=== PATIENT | female | born 1950 | race Caucasian/White ===

== ENCOUNTER 2017-02-28 14:31 | Emergency (ER) | payer BC ==
[2017-02-28] MEDS ORDERED: Acetaminophen/oxyCODONE 325-5 MG Tab PO ONE (14:43)
--- NOTE | 2017-02-28 14:49 | EDM.PDOC ---
ED HPI GENERAL MEDICAL PROBLEM - General Chief Complaint: Upper Extremity Injury/Pain Stated Complaint: LEFT SHOULDER-ARM HEAD Time Seen by Provider: 02/28/17 14:40 Source of Information: Reports: Patient History Limitations: Reports: No Limitations - History of Present Illness INITIAL COMMENTS - FREE TEXT/NARRATIVE: 67 yo female fell at home this afternoon injuring her L arm and did hit her head. The fall was not witnessed. ? LOC. No current FOUNTAIN, nausea, or neck pain. Was briefly confused when first found. Feels somewhat tired now. Is not on warfarin. Onset: Today Onset Date: 02/28/17 Onset Time: 13:00 Duration: Minutes:, Constant Location: Reports: Upper Extremity, Left Quality: Reports: Ache Severity: Moderate Improves with: Reports: Rest Worsens with: Reports: Movement Context: Reports: Trauma Associated Symptoms: Reports: Confusion (Resolved.). 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: Splint(s) (sling) Left Arm Pain Score (Numeric/FACES): 6 - Related Data Allergies Allergy/AdvReac Type Severity Reaction Status Date / Time Penicillins Allergy Rash Verified 02/28/17 15:29 Sulfa (Sulfonamide Allergy Rash Verified 02/28/17 15:29 Antibiotics) Home Meds: Home Meds Exenatide Microspheres [Bydureon Pen] 2 mg SQ WEEKLY 02/28/17 [History] Gabapentin [Neurontin] 600 mg PO BEDTIME 02/28/17 [History] Insulin Degludec [Tresiba Flextouch U-200] 40 units SQ DAILY 02/28/17 [History] Levothyroxine Sodium [Synthroid] 300 mcg PO DAILY 02/28/17 [History] Lisinopril [Lisinopril] 10 mg PO DAILY 02/28/17 [History] Nilotinib HCl [Tasigna] 200 mg PO BID 02/28/17 [History] atorvaSTATin Calcium [Atorvastatin Calcium] 20 mg PO DAILY 02/28/17 [History] sitaGLIPtin Phos/Metformin HCl [Janumet Xr 50-500 mg Tablet] 1 each PO BID 02/28 [History] Review of Systems - Review of Systems Review Of Systems: See Below Constitutional: Reports: No Symptoms Eyes: Reports: No Symptoms Ears: Reports: No Symptoms Nose: Reports: No Symptoms Mouth/Throat: Reports: No Symptoms Respiratory: Reports: No Symptoms GI/Abdominal: Reports: No Symptoms Genitourinary: Reports: No Symptoms Musculoskeletal: Reports: Arm Pain (left) Skin: Reports: No Symptoms Neurological: Reports: Confusion (transient, now resolved.). Denies: Headache Psychiatric: Reports: No Symptoms ED EXAM, GENERAL - Physical Exam Exam: See Below Exam Limited By: No Limitations General Appearance: Alert, WD/WN, No Apparent Distress, Obese Eye Exam: Bilateral Eye: Normal Inspection Ears: Normal External Exam, Normal Canal, Hearing Grossly Normal Ear Exam: Bilateral Ear: Auricle Normal, Canal Normal Nose: Normal Inspection, Normal Mucosa, No Blood Throat/Mouth: Normal Inspection, Normal Lips, Normal Oropharynx, Normal Voice, No Airway Compromise Head: Atraumatic, Normocephalic Neck: Normal Inspection, Supple, Non-Tender Respiratory/Chest: No Respiratory Distress, Lungs Clear, Normal Breath Sounds, No Accessory Muscle Use Cardiovascular: Regular Rate, Rhythm, No Edema GI/Abdominal: Normal Bowel Sounds, Soft, Non-Tender, No Distention Back Exam: Normal Inspection. No: CVA Tenderness (R), CVA Tenderness (L) Extremities: Normal Inspection, No Pedal Edema, Arm Pain (L humerus), Limited Range of Motion. No: Increased Warmth, Mottled, Redness Neurological: Alert, Oriented, CN II-XII Intact, Normal Cognition, Normal Gait Psychiatric: Normal Affect, Normal Mood Skin Exam: Warm, Dry, Intact, Normal Color, No Rash Lymphatic: No Adenopathy Course - Vital Signs Last Recorded V/S: Last Vital Signs Temp 36.5 C 02/28/17 15:23 Pulse 77 02/28/17 15:23 Resp 18 02/28/17 15:23 BP 141/72 H 02/28/17 15:23 Pulse Ox 100 02/28/17 15:23 - Orders/Labs/Meds Orders: Active Orders 24 hr Category Date Time Status Humerus Lt [CR] Stat Exams 02/28/17 14:43 Taken Shoulder Comp Lt [CR] Stat Exams 02/28/17 15:16 Ordered Meds: Medications Discontinued Medications Generic Name Dose Route Start Last Admin Trade Name Freq PRN Reason Stop Dose Admin Oxycodone/Acetaminophen 1 tab 02/28/17 14:43 02/28/17 15:20 Percocet 325-5 Mg PO 02/28/17 14:44 1 tab ONETIME ONE Administration - Radiology Interpretation Free Text/Narrative:: L humerus X-ray-no fx seen. L shoulder [id number] neck fx, non-displaced. Departure - Departure Time of Disposition: 15:45 Disposition: Home, Self-Care 01 Condition: Fair Clinical Impression: Humeral surgical neck fracture Qualifiers: Encounter type: initial encounter Fracture type: closed Fracture morphology: unspecified fracture morphology Fracture alignment: nondisplaced Laterality: left Qualified Code(s): S42.215A - Unspecified nondisplaced fracture of surgical neck of left humerus, initial encounter for closed fracture - Discharge Information Referrals: Anushka Munoz MD [Primary Care Provider] - Forms: ED Department Discharge - My Orders Last 24 Hours: My Active Orders 02/28/17 14:43 Humerus Lt [CR] Stat 02/28/17 15:16 Shoulder Comp Lt [CR] Stat - Assessment/Plan Last 24 Hours: My Active Orders 02/28/17 14:43 Humerus Lt [CR] Stat 02/28/17 15:16 Shoulder Comp Lt [CR] Stat
--- NOTE | 2017-02-28 16:03 | CR ---
INDICATION: Injury. LEFT HUMERUS: Five images of the left humerus were obtained and revealed some calcifications at the humeral head, which may represent dystrophic calcifications from previous injuries. Avulsion chip fracture fragments are felt to be less likely with this appearance. If symptoms are referable to this area, shoulder x-ray specifically recommended for further evaluation. Otherwise, no finding to suggest an acute fracture or dislocation was identified at the humerus. Hypertrophic degenerative changes are suggested at the proximal humerus. Report was given in person to Dr. Ugarte. [facility]ENTER[facility]
--- NOTE | 2017-02-28 16:09 | CR ---
INDICATION: Fall. LEFT SHOULDER: Three images of the left shoulder were obtained and revealed severe osteoarthritis with marked narrowing of the inferior glenohumeral joint space and moderate hypertrophic spurring with sclerosis. There are comminuted chip fracture fragments noted along the lateral aspect of the humerus at the greater tuberosity with the possibility of a line of fracture extending medially from there to the area of the medial joint surface of the humerus. If present, that fracture line would be undisplaced and hairline in nature. It is not definitely visualized through and through, but there is suggestion on the medial aspect of the humerus at the surgical neck, an appearance of fracture. Therefore, it should be assumed that there is a fracture extending throughout the entire humeral head in that area. Position and alignment would be adequate, however. Report was called to Dr. Ugarte immediately after the examination was completed , 02/28/2017. [place]
== END 2017-02-28 15:40 | disposition home or self-care (01) ==
LOC: FB.ED 14:31
DX: S42.212A Unspecified displaced fracture of surgical neck of left humerus, initial encounter for closed fracture (principal); Z88.0 Allergy status to penicillin; Z88.2 Allergy status to sulfonamides; Z97.4 Presence of external hearing-aid; W19.XXXA Unspecified fall, initial encounter
CPT/HCPCS: 73030; 73060; 99284; A9270

== ENCOUNTER 2017-08-27 23:03 | Observation (INO) | payer MEDICARE, BC ==
--- NOTE | 2017-08-27 23:35 | EDM.PDOC ---
ED HPI GENERAL MEDICAL PROBLEM - General Stated Complaint: CHEST PAIN Time Seen by Provider: 08/27/17 23:05 Source of Information: Reports: Patient History Limitations: Reports: No Limitations - History of Present Illness INITIAL COMMENTS - FREE TEXT/NARRATIVE: c/o CP pt with sudden onset of chest tightness, midsternal, radiates to back between shoulder blades and down back some N, no V not had previously no prior CV or pul disease was "quite sweaty--dripping wet" sxs subsided by time EMS arrived, given NTG and O2 by EMS no sxs on arrival at ED no cough, no fever or chills daughter reports that she was quite sob on the phone and even after she arrived dx with pneumonia in office 1w ago, CxR done there not hungry today, ate popcorn for bfast and potato chips for dinner, no lunch drank only coffee and diet Isela Larry today had an episode of SOB 1w ago during the night altho she describes this as anxiety BP is borderline low c/w dehydration back of the neck Pain Score (Numeric/FACES): 7 - Related Data Allergies Allergy/AdvReac Type Severity Reaction Status Date / Time Penicillins Allergy Rash Verified 08/27/17 23:38 Sulfa (Sulfonamide Allergy Rash Verified 08/27/17 23:38 Antibiotics) Home Meds: Home Meds Exenatide Microspheres [Bydureon Pen] 2 mg SQ WEEKLY 02/28/17 [History] Gabapentin [Neurontin] 600 mg PO BEDTIME 02/28/17 [History] Insulin Degludec [Tresiba Flextouch U-200] 40 units SQ DAILY 02/28/17 [History] Levothyroxine Sodium [Synthroid] 300 mcg PO DAILY 02/28/17 [History] Lisinopril 10 mg PO DAILY 02/28/17 [History] Nilotinib HCl [Tasigna] 200 mg PO BID 02/28/17 [History] atorvaSTATin Calcium [Atorvastatin Calcium] 20 mg PO BEDTIME 02/28/17 [History] sitaGLIPtin Phos/Metformin HCl [Janumet Xr 50-500 mg Tablet] 1 each PO BID 02/28 [History] guaiFENesin/Codeine Phosphate [Codeine-Guaifen 10-100 mg/5 ml] 5 ml PO TID PRN 04/11/18 [History] Past Medical History Endocrine/Metabolic History: Reports: Diabetes, Type II, Hypothyroidism Oncologic (Cancer) History: Reports: Other (See Below) Other Oncologic History: CML Social & Family History - Tobacco Use Smoking Status *Q: Current Every Day Smoker Years of Tobacco use: 30 Packs/Tins Daily: 1 - Caffeine Use Caffeine Use: Reports: Coffee - Recreational Drug Use Recreational Drug Use: No ED ROS GENERAL - Review of Systems Review Of Systems: See Below Constitutional: Reports: Diaphoresis HEENT: Reports: No Symptoms Respiratory: Reports: No Symptoms Cardiovascular: Reports: Chest Pain Endocrine: Reports: No Symptoms GI/Abdominal: Reports: Nausea : Reports: No Symptoms Musculoskeletal: Reports: No Symptoms Skin: Reports: No Symptoms Neurological: Reports: No Symptoms Psychiatric: Reports: No Symptoms Hematologic/Lymphatic: Reports: No Symptoms Immunologic: Reports: No Symptoms ED EXAM, GENERAL - Physical Exam Exam: See Below Exam Limited By: No Limitations General Appearance: Alert, WD/WN, No Apparent Distress, Other (alert, pleasant, nonill, cooperative) Eye Exam: Bilateral Eye: Normal Inspection Ears: Hearing Grossly Normal Nose: Normal Inspection, Normal Mucosa, No Blood Throat/Mouth: Normal Inspection, Normal Lips, Normal Teeth, Normal Gums, Normal Oropharynx, Normal Voice, No Airway Compromise Head: Atraumatic, Normocephalic Neck: Normal Inspection, Supple, Non-Tender, Full Range of Motion Respiratory/Chest: No Respiratory Distress, Lungs Clear, Normal Breath Sounds, No Accessory Muscle Use, Chest Non-Tender Cardiovascular: Regular Rate, Rhythm, No Edema, No Gallop, No JVD, No Murmur, No Rub GI/Abdominal: Soft, Non-Tender, No Distention Back Exam: Normal Inspection, Full Range of Motion, NT Extremities: Normal Inspection, Normal Range of Motion, Non-Tender, No Pedal Edema Neurological: Alert, Oriented, CN II-XII Intact, Normal Cognition, No Motor/ Sensory Deficits Psychiatric: Normal Affect, Normal Mood Skin Exam: Warm, Dry, Intact, Normal Color, No Rash Lymphatic: No Adenopathy Course - Vital Signs Last Recorded V/S: Last Vital Signs Temp 36.2 C 08/27/17 23:05 Pulse 91 08/27/17 23:05 Resp 19 08/27/17 23:05 BP 103/50 L 08/27/17 23:05 Pulse Ox 95 08/27/17 23:05 - Orders/Labs/Meds Orders: Active Orders 24 hr Category Date Time Status CTA Abd Pelv w Cont [CT] Stat Exams 08/28/17 01:18 Taken Chest 1V Frontal [CR] Stat Exams 08/27/17 23:23 Ordered Chest Abdomen [CT] Stat Exams 08/28/17 00:10 Taken Sodium Chloride 0.9% [Normal Saline] 1,000 ml Med 08/27/17 23:45 Active IV ASDIRECTED EKG 12 Lead [EK] Routine Ther 08/27/17 23:23 Ordered Medication Orders Sodium Chloride (Normal Saline) 1,000 mls @ 999 mls/hr IV ASDIRECTED [place] Last Admin: 08/27/17 23:54 Dose: 999 mls/hr Labs: Laboratory Tests 08/27/17 08/27/17 08/27/17 Range/Units 23:25 23:25 23:25 WBC 13.8 H (4.5-12.0) X10-3/uL RBC 4.89 (3.23-5.20) x10(6)uL Hgb 14.8 (11.5-15.5) g/dL Hct 42.8 (30.0-51.3) % MCV 87.3 (80-96) fL MCH 30.2 (27.7-33.6) pg MCHC 34.6 (32.2-35.4) g/dL RDW 13.3 (11.5-15.5) % Plt Count 252 (125-369) X10(3)uL MPV 8.4 (7.4-10.4) fL Add Manual Diff Yes Neutrophils % (Manual) 86 H (46-82) % Band Neutrophils % 1 (0-6) % Lymphocytes % (Manual) 8 L (13-37) % Monocytes % (Manual) 3 L (4-12) % Eosinophils % (Manual) 2 (0-5) % PT (8.7-11.1) INR (0.89-1.13) D-Dimer, Quantitative (100-400) ng/mL Sodium 139 (135-145) mmol/L Potassium 4.4 (3.5-5.3) mmol/L Chloride 102 (100-110) mmol/L Carbon Dioxide 27 (21-32) mmol/L BUN 21 H (7-18) mg/dL Creatinine 1.0 (0.55-1.02) mg/dL Est Cr Clr Drug Dosing TNP Estimated GFR (MDRD) 55 L (>60) BUN/Creatinine Ratio 21.0 H (9-20) Glucose 196 H (80-116) mg/dL Calcium 9.6 (8.6-10.2) mg/dL Total Bilirubin 0.4 (0.1-1.3) mg/dL AST 15 (5-25) IU/L ALT 31 (12-36) U/L Alkaline Phosphatase 96 (56-112) IU/L Troponin I < 0.017 L (<0.017-0.056) ng/mL C-Reactive Protein 0.5 (0.5-0.9) mg/dL NT-Pro-B Natriuret Pep (<=125) pg/mL Total Protein 7.5 (6.0-8.0) g/dL Albumin 3.5 (3.2-4.6) g/dL Globulin 4.0 g/dL Albumin/Globulin Ratio 0.9 08/27/17 08/27/17 08/27/17 Range/Units 23:25 23:25 23:25 WBC (4.5-12.0) X10-3/uL RBC (3.23-5.20) x10(6)uL Hgb (11.5-15.5) g/dL Hct (30.0-51.3) % MCV (80-96) fL MCH (27.7-33.6) pg MCHC (32.2-35.4) g/dL RDW (11.5-15.5) % Plt Count (125-369) X10(3)uL MPV (7.4-10.4) fL Add Manual Diff Neutrophils % (Manual) (46-82) % Band Neutrophils % (0-6) % Lymphocytes % (Manual) (13-37) % Monocytes % (Manual) (4-12) % Eosinophils % (Manual) (0-5) % PT 9.9 (8.7-11.1) INR 0.98 (0.89-1.13) D-Dimer, Quantitative 1020 H (100-400) ng/mL Sodium (135-145) mmol/L Potassium (3.5-5.3) mmol/L Chloride (100-110) mmol/L Carbon Dioxide (21-32) mmol/L BUN (7-18) mg/dL Creatinine (0.55-1.02) mg/dL Est Cr Clr Drug Dosing Estimated GFR (MDRD) (>60) BUN/Creatinine Ratio (9-20) Glucose (80-116) mg/dL Calcium (8.6-10.2) mg/dL Total Bilirubin (0.1-1.3) mg/dL AST (5-25) IU/L ALT (12-36) U/L Alkaline Phosphatase (56-112) IU/L Troponin I (<0.017-0.056) ng/mL C-Reactive Protein (0.5-0.9) mg/dL NT-Pro-B Natriuret Pep 180 H (<=125) pg/mL Total Protein (6.0-8.0) g/dL Albumin (3.2-4.6) g/dL Globulin g/dL Albumin/Globulin Ratio Meds: Medications Generic Name Dose Route Start Last Admin Trade Name Freq PRN Reason Stop Dose Admin Sodium Chloride 1,000 mls @ 999 mls/hr 08/27/17 23:45 08/27/17 23:54 Normal Saline IV 999 mls/hr ASDIRECTED [place] Administration Discontinued Medications Generic Name Dose Route Start Last Admin Trade Name Freq PRN Reason Stop Dose Admin Iopamidol 150 ml 08/28/17 00:43 08/28/17 00:50 Isovue-370 (76%) IV 08/28/17 00:44 116 ml ONETIME ONE Administration - Re-Assessments/Exams Free Text/Narrative Re-Assessment/Exam: 08/28/17 02:54 CTA of chest/abd/pelvis is neg for PE or aneurysm, does show 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 and fat attenuation at the atrial septum pt's symptoms c/w ACS, will admit to r/o PA and for further cardiac evaluation, pt reluctantly agrees Departure - Departure Time of Disposition: 02:57 Disposition: Refer to Observation Condition: Good Clinical Impression: Acute coronary syndrome, Chest pain, rule out acute myocardial infarction, Elevated brain natriuretic peptide (BNP) level, Leukocytosis, Elevated d-dimer, Current smoker - Discharge Information Referrals: Anushka Munoz MD [Primary Care Provider] - - My Orders Last 24 Hours: My Active Orders 08/27/17 23:23 Chest 1V Frontal [CR] Stat EKG 12 Lead [EK] Routine 08/27/17 23:45 Sodium Chloride 0.9% [Normal Saline] 1,000 ml IV ASDIRECTED 08/28/17 00:10 Chest Abdomen [CT] Stat 08/28/17 01:18 CTA Abd Pelv w Cont [CT] Stat - Assessment/Plan Last 24 Hours: My Active Orders 08/27/17 23:23 Chest 1V Frontal [CR] Stat EKG 12 Lead [EK] Routine 08/27/17 23:45 Sodium Chloride 0.9% [Normal Saline] 1,000 ml IV ASDIRECTED 08/28/17 00:10 Chest Abdomen [CT] Stat 08/28/17 01:18 CTA Abd Pelv w Cont [CT] Stat
[2017-08-27] MEDS ORDERED: Sodium Chloride 0.9% 1,000 ML IV SCH (23:45)
[2017-08-28] MEDS ORDERED: Iopamidol 755 MG/ML 150 ML Bottle IV ONE (00:43)
[2017-08-28] MEDS ORDERED: Ondansetron 4 MG/2 ML SDV IV PRN (03:09)
[2017-08-28] MEDS ORDERED: Nitroglycerin 0.4 MG Tab.SL SL PRN (03:09)
[2017-08-28] MEDS ORDERED: Acetaminophen 325 MG Tab PO PRN (03:09)
[2017-08-28] MEDS ORDERED: Sodium Chloride 0.9% 1,000 ML IV SCH (03:15)
[2017-08-28] MEDS ORDERED: Enoxaparin 40 MG/0.4 ML Syringe SUBCUT SCH (04:00)
[2017-08-28] MEDS ORDERED: NILOTINIB HCL 400 MG PO SCH (09:00)
[2017-08-28] MEDS ORDERED: SYNTHROID PO SCH (09:00)
[2017-08-28] MEDS ORDERED: TRESIBA SQ SCH (09:00)
[2017-08-28] MEDS ORDERED: Lisinopril 10 MG Tab *PTOM PO SCH (09:00)
[2017-08-28] MEDS ORDERED: Exenatide Microspheres [Bydureon Pen] 2 MG SQ SCH (10:00)
--- NOTE | 2017-08-28 10:52 | PCM.HP ---
H&P History of Present Illness - General Date of Service: 08/28/17 Admit Problem/Dx: Admission Diagnosis/Problem Admission Diagnosis/Problem Acute coronary syndrome - History of Present Illness Initial Comments - Free Text/Narative: 67y f presented to ed due to pain in back and neck with some chest discomfort. no trauma. some nausea and sweating. no sob, cough, fevers or chills. no pain with swallowing. no hx of this in the past. nothing make it better or worse. described as somewhat sharp and constant. has reflux at times, but didnt seem to be the same. medical/surgical/medication and ADL reviewed with her. risk factors for cardiovascular etiology reviewed. studies in the er included ekg that was non specific in normal sinus. cxr without focal findings. concern for potential disceting aortic aneurism as cause prompted d-dimer which was elevated. cta abdomen negative. back of the neck Pain Score (Numeric/FACES): 7 - Related Data Allergies/Adverse Reactions: Allergies Allergy/AdvReac Type Severity Reaction Status Date / Time Penicillins Allergy Rash Verified 08/29/17 18:25 Sulfa (Sulfonamide Allergy Rash Verified 08/29/17 18:25 Antibiotics) Home Medications: Home Meds Exenatide Microspheres [Bydureon Pen] 2 mg SQ WE 02/28/17 [History] Gabapentin [Neurontin] 600 mg PO BEDTIME 02/28/17 [History] Insulin Degludec [Tresiba Flextouch U-200] 40 units SQ DAILY 02/28/17 [History] Levothyroxine Sodium [Synthroid] 300 mcg PO DAILY 02/28/17 [History] Lisinopril 10 mg PO DAILY 02/28/17 [History] Nilotinib HCl [Tasigna] 400 mg PO BID 02/28/17 [History] atorvaSTATin Calcium [Atorvastatin Calcium] 20 mg PO BEDTIME 02/28/17 [History] sitaGLIPtin Phos/Metformin HCl [Janumet Xr 50-500 mg Tablet] 1 each PO BID 02/28 [History] guaiFENesin/Codeine Phosphate [Codeine-Guaifen 10-100 mg/5 ml] 5 ml PO TID PRN 08/28/17 [History] Past Medical History HEENT History: Reports: Impaired Vision Respiratory History: Reports: Pneumonia, Recurrent [employer] History: Reports: Psychiatric History: Reports: Panic Attack Endocrine/Metabolic History: Reports: Diabetes, Type II, Hypothyroidism Oncologic (Cancer) History: Reports: Leukemia, Other (See Below) Other Oncologic History: CML - Past Surgical History GI Surgical History: Reports: Appendectomy, Cholecystectomy Female Surgical History: Reports: Other (See Below) Other Female Surgeries/Procedures: ovarian cyst, cervical cancer Social & Family History - Family History Family Medical History: Unobtainable - Tobacco Use Smoking Status *Q: Current Every Day Smoker Years of Tobacco use: 50 Packs/Tins Daily: 1.5 Used Tobacco, but Quit: No - Caffeine Use Caffeine Use: Reports: Coffee, Soda - Recreational Drug Use Recreational Drug Use: No H&P Review of Systems - Review of Systems: Review Of Systems: ROS reveals no pertinent complaints other than HPI. Exam - Exam Exam: See Below - Vital Signs Vital Signs: Last Vital Signs Temp 98.0 F 08/28/17 03:55 Pulse 78 08/28/17 03:55 Resp 18 08/28/17 03:55 BP 111/61 08/28/17 09:59 Pulse Ox 94 L 08/28/17 03:55 Weight: 109.815 kg - Exam General: Alert, Oriented, Cooperative. No: Mild Distress HEENT: Conjunctiva Clear, Posterior Pharynx Clear. No: Scleral Icterus Neck: Supple, Trachea Midline, +2 Carotid Pulse wo Bruit. No: Lymphadenopathy, JVD, Thyromegaly Lungs: Clear to Auscultation, Normal Respiratory Effort. No: Rhonchi, Rub Cardiovascular: Regular Rate, Regular Rhythm, Normal S1, Normal S2 GI/Abdominal Exam: Normal Bowel Sounds, Soft, Non-Tender, No Abnormal Bruit, No Mass Back Exam: Normal Inspection, Full Range of Motion. No: CVA Tenderness (R), CVA Tenderness (L), Paraspinal Tenderness, Vertebral Tenderness Extremities: Non-Tender, Normal Capillary Refill, Leg Pain Skin: Warm, Dry, Intact. No: Wound Psychiatric: Alert, Normal Affect, Normal Mood - Patient Data Lab Results Last 24 hrs: Laboratory Results - last 24 hr 08/27/17 08/27/17 08/27/17 Range/Units 23:25 23:25 23:25 WBC 13.8 H (4.5-12.0) X10-3/uL RBC 4.89 (3.23-5.20) x10(6)uL Hgb 14.8 (11.5-15.5) g/dL Hct 42.8 (30.0-51.3) % MCV 87.3 (80-96) fL MCH 30.2 (27.7-33.6) pg MCHC 34.6 (32.2-35.4) g/dL RDW 13.3 (11.5-15.5) % Plt Count 252 (125-369) X10(3)uL MPV 8.4 (7.4-10.4) fL Neut % (Auto) (46-82) % Lymph % (Auto) (13-37) % [place] % (Auto) (4-12) % Eos % (Auto) (1.0-5.0) % Baso % (Auto) (0-2) % Neut # (Auto) (1.6-8.3) # Lymph # (Auto) (0.6-5.0) # [place] # (Auto) (0.0-1.3) # Eos # (Auto) (0.0-0.8) # Baso # (Auto) (0.0-0.2) # Add Manual Diff Yes Neutrophils % (Manual) 86 H (46-82) % Band Neutrophils % 1 (0-6) % Lymphocytes % (Manual) 8 L (13-37) % Monocytes % (Manual) 3 L (4-12) % Eosinophils % (Manual) 2 (0-5) % PT (8.7-11.1) INR (0.89-1.13) D-Dimer, Quantitative (100-400) ng/mL Sodium 139 (135-145) mmol/L Potassium 4.4 (3.5-5.3) mmol/L Chloride 102 (100-110) mmol/L Carbon Dioxide 27 (21-32) mmol/L BUN 21 H (7-18) mg/dL Creatinine 1.0 (0.55-1.02) mg/dL Est Cr Clr Drug Dosing TNP Estimated GFR (MDRD) 55 L (>60) BUN/Creatinine Ratio 21.0 H (9-20) Glucose 196 H (80-116) mg/dL Calcium 9.6 (8.6-10.2) mg/dL Total Bilirubin 0.4 (0.1-1.3) mg/dL AST 15 (5-25) IU/L ALT 31 (12-36) U/L Alkaline Phosphatase 96 (56-112) IU/L Troponin I < 0.017 L (<0.017-0.056) ng/mL C-Reactive Protein 0.5 (0.5-0.9) mg/dL NT-Pro-B Natriuret Pep (<=125) pg/mL Total Protein 7.5 (6.0-8.0) g/dL Albumin 3.5 (3.2-4.6) g/dL Globulin 4.0 g/dL Albumin/Globulin Ratio 0.9 08/27/17 08/27/17 08/27/17 Range/Units 23:25 23:25 23:25 WBC (4.5-12.0) X10-3/uL RBC (3.23-5.20) x10(6)uL Hgb (11.5-15.5) g/dL Hct (30.0-51.3) % MCV (80-96) fL MCH (27.7-33.6) pg MCHC (32.2-35.4) g/dL RDW (11.5-15.5) % Plt Count (125-369) X10(3)uL MPV (7.4-10.4) fL Neut % (Auto) (46-82) % Lymph % (Auto) (13-37) % [place] % (Auto) (4-12) % Eos % (Auto) (1.0-5.0) % Baso % (Auto) (0-2) % Neut # (Auto) (1.6-8.3) # Lymph # (Auto) (0.6-5.0) # [place] # (Auto) (0.0-1.3) # Eos # (Auto) (0.0-0.8) # Baso # (Auto) (0.0-0.2) # Add Manual Diff Neutrophils % (Manual) (46-82) % Band Neutrophils % (0-6) % Lymphocytes % (Manual) (13-37) % Monocytes % (Manual) (4-12) % Eosinophils % (Manual) (0-5) % PT 9.9 (8.7-11.1) INR 0.98 (0.89-1.13) D-Dimer, Quantitative 1020 H (100-400) ng/mL Sodium (135-145) mmol/L Potassium (3.5-5.3) mmol/L Chloride (100-110) mmol/L Carbon Dioxide (21-32) mmol/L BUN (7-18) mg/dL Creatinine (0.55-1.02) mg/dL Est Cr Clr Drug Dosing Estimated GFR (MDRD) (>60) BUN/Creatinine Ratio (9-20) Glucose (80-116) mg/dL Calcium (8.6-10.2) mg/dL Total Bilirubin (0.1-1.3) mg/dL AST (5-25) IU/L ALT (12-36) U/L Alkaline Phosphatase (56-112) IU/L Troponin I (<0.017-0.056) ng/mL C-Reactive Protein (0.5-0.9) mg/dL NT-Pro-B Natriuret Pep 180 H (<=125) pg/mL Total Protein (6.0-8.0) g/dL Albumin (3.2-4.6) g/dL Globulin g/dL Albumin/Globulin Ratio 08/28/17 Range/Units 06:25 WBC 10.1 (4.5-12.0) X10-3/uL RBC 4.52 (3.23-5.20) x10(6)uL Hgb 13.4 (11.5-15.5) g/dL Hct 39.0 (30.0-51.3) % MCV 86.4 (80-96) fL MCH 29.7 (27.7-33.6) pg MCHC 34.3 (32.2-35.4) g/dL RDW 13.3 (11.5-15.5) % Plt Count 232 (125-369) X10(3)uL MPV 8.5 (7.4-10.4) fL Neut % (Auto) 70.8 (46-82) % Lymph % (Auto) 20.1 (13-37) % [place] % (Auto) 5.3 (4-12) % Eos % (Auto) 3 (1.0-5.0) % Baso % (Auto) 1 (0-2) % Neut # (Auto) 7.2 (1.6-8.3) # Lymph # (Auto) 2.0 (0.6-5.0) # [place] # (Auto) 0.5 (0.0-1.3) # Eos # (Auto) 0.3 (0.0-0.8) # Baso # (Auto) 0.1 (0.0-0.2) # Add Manual Diff Neutrophils % (Manual) (46-82) % Band Neutrophils % (0-6) % Lymphocytes % (Manual) (13-37) % Monocytes % (Manual) (4-12) % Eosinophils % (Manual) (0-5) % PT (8.7-11.1) INR (0.89-1.13) D-Dimer, Quantitative (100-400) ng/mL Sodium (135-145) mmol/L Potassium (3.5-5.3) mmol/L Chloride (100-110) mmol/L Carbon Dioxide (21-32) mmol/L BUN (7-18) mg/dL Creatinine (0.55-1.02) mg/dL Est Cr Clr Drug Dosing Estimated GFR (MDRD) (>60) BUN/Creatinine Ratio (9-20) Glucose (80-116) mg/dL Calcium (8.6-10.2) mg/dL Total Bilirubin (0.1-1.3) mg/dL AST (5-25) IU/L ALT (12-36) U/L Alkaline Phosphatase (56-112) IU/L Troponin I (<0.017-0.056) ng/mL C-Reactive Protein (0.5-0.9) mg/dL NT-Pro-B Natriuret Pep (<=125) pg/mL Total Protein (6.0-8.0) g/dL Albumin (3.2-4.6) g/dL Globulin g/dL Albumin/Globulin Ratio Result Diagrams: 08/28/17 06:25 08/28/17 06:25 - Problem List (1) Chest pain, rule out acute myocardial infarction SNOMED Code(s): 01758929 ICD Code: R07.9 - CHEST PAIN, UNSPECIFIED Status: Acute (2) Elevated d-dimer SNOMED Code(s): 663334093 ICD Code: R79.89 - OTHER SPECIFIED ABNORMAL FINDINGS OF BLOOD CHEMISTRY Status: Acute (3) Current smoker SNOMED Code(s): 66590266 ICD Code: F17.200 - NICOTINE DEPENDENCE, UNSPECIFIED, UNCOMPLICATED Status : Acute Problem List Initiated/Reviewed/Updated: Yes Orders Last 24hrs: Active Orders 24 hr Category Date Time Status Admission Status [Patient Status] [ADT] Routine ADT 08/28/17 03:00 Active Blood Glucose Check, Bedside [RC] 06,11,17,21 Care 08/28/17 03:09 Active Oxygen Therapy [RC] PRN Care 08/28/17 03:09 Active Telemetry Monitoring [Cardiac Monitoring] [RC] .As Care 08/28/17 05:46 Active Directed Up ad Lashanda [RC] ASDIRECTED Care 08/28/17 03:09 Active VTE/DVT Education [RC] Per Unit Routine Care 08/28/17 03:09 Active Vital Signs [RC] 08,12,16,20,00,04 Care 08/28/17 03:09 Active Consistent Carbohydrate Diet [DIET] Diet 08/28/17 Breakfast Active Heart Healthy Diet [DIET] Diet 08/28/17 Breakfast Active CTA Abd Pelv w Cont [CT] Stat Exams 08/28/17 01:18 Taken Chest 1V Frontal [CR] Stat Exams 08/27/17 23:23 Taken Chest Abdomen [CT] Stat Exams 08/28/17 00:10 Taken BASIC METABOLIC PANEL,BMP [CHEM] DAILY Lab 08/29/17 06:00 Ordered CBC WITH AUTO DIFF [HEME] DAILY Lab 08/29/17 06:00 Ordered TROPONIN I [CHEM] Routine Lab 08/28/17 14:00 Ordered Acetaminophen [Tylenol] Med 08/28/17 03:09 Active 650 mg PO Q4H PRN Enoxaparin [Lovenox] Med 08/28/17 04:00 Active 40 mg SUBCUT Q24H Exenatide Microspheres [Bydureon Pen] Med 08/28/17 10:00 Active 2 mg SQ We Gabapentin [Neurontin] Med 08/28/17 21:00 Active 600 mg PO BEDTIME Insulin Degludec Med 08/28/17 09:00 Active 0 units SQ DAILY Levothyroxine Sodium [Synthroid] Med 08/28/17 09:00 Active 0 mcg PO DAILY Lisinopril [Prinivil] Med 08/28/17 09:00 Active 10 mg PO DAILY Nilotinib HCl [Tasigna] Med 08/28/17 09:00 Active 400 mg PO BID Nitroglycerin [Nitrostat] Med 08/28/17 03:09 Active 0.4 mg SL Q5M PRN Ondansetron [Zofran] Med 08/28/17 03:09 Active 4 mg IV Q4H PRN SitaGLIPtin [Januvia] Med 08/28/17 09:00 Pending 50 mg PO DAILY Sodium Chloride 0.9% [Normal Saline] 1,000 ml Med 08/27/17 23:45 Active IV ASDIRECTED Sodium Chloride 0.9% [Normal Saline] 1,000 ml Med 08/28/17 03:15 Active IV ASDIRECTED atorvaSTATin [Lipitor] Med 08/28/17 21:00 Active 20 mg PO BEDTIME Resuscitation Status Routine Resus Stat 08/28/17 03:09 Ordered EKG 12 Lead [EK] Routine Ther 08/27/17 23:23 Ordered EKG 12 Lead [EK] Routine Ther 08/28/17 06:00 Ordered EKG 12 Lead [EK] Routine Ther 08/28/17 14:00 Ordered Medication Orders Acetaminophen (Tylenol) 650 mg PO Q4H PRN PRN Reason: Pain (Mild 1-3)/fever Atorvastatin Calcium (Lipitor) 20 mg PO BEDTIME [facility] Enoxaparin Sodium (Lovenox) 40 mg SUBCUT Q24H [facility] Last Admin: 08/28/17 04:26 Dose: 40 mg Gabapentin (Neurontin) 600 mg PO BEDTIME [facility] Sodium Chloride (Normal Saline) 1,000 mls @ 999 mls/hr IV ASDIRECTED [facility] Last Admin: 08/27/17 23:54 Dose: 999 mls/hr Sodium Chloride (Normal Saline) 1,000 mls @ 50 mls/hr IV ASDIRECTED [facility] Last Admin: 08/28/17 04:27 Dose: 50 mls/hr Lisinopril (Prinivil) 10 mg PO DAILY [facility] Last Admin: 08/28/17 09:59 Dose: 10 mg Nitroglycerin (Nitrostat) 0.4 mg SL Q5M PRN PRN Reason: Chest Pain Exenatide Microspheres [ Bydureon Pen] 2 Mg 2 mg SQ We [facility] Last Admin: 08/28/17 10:33 Dose: 2 mg Tresiba *Ptom 0 units SQ DAILY [facility] Last Admin: 08/28/17 10:04 Dose: 40 units Synthroid 300mcg * (Ptom) 0 mcg PO DAILY [facility] Last Admin: 08/28/17 10:00 Dose: 300 mcg Nilotinib Hcl [ Tasigna] 400 Mg * Ptom 400 mg PO BID [facility] Last Admin: 08/28/17 10:34 Dose: 400 mg Ondansetron HCl (Zofran) 4 mg IV Q4H PRN PRN Reason: Nausea/Vomiting Sitagliptin Phosphate (Januvia) 50 mg PO DAILY [facility] Assessment/Plan Comment:: admitted for observation on tele. run serial ekgs and trops. not having in pain in ed but recieved nitro upon ems presentaion. if pain recurs will give nitro morphine and heparin drip. she has received lovenox dvt proph and gi proph. fluids given in er. will let her eat if 2nd set of enzymes negative. discussed improtance of tobacco cessation. she declines any further written material. will discuss with her dr. archer. she is full code status. anticipate dc in 24- 48h pending above with further outpt cardiac workup.
--- NOTE | 2017-08-28 10:56 | PCM.DCSUM1 ---
Discharge Summary - Hospital Course Brief History: 67 y female admitted under observation to rule out Acute [place] after episode of chest, back pain with sudden sweating and lightheadednes. symptoms resolved after 2 doses of nitro sublingual and did not recur. - Discharge Data Discharge Date: 08/28/17 Discharge Disposition: Home, Self-Care 01 Condition: Good - Discharge Diagnosis/Problem(s) (1) Non-cardiac chest pain SNOMED Code(s): 453922189 ICD Code: R07.89 - OTHER CHEST PAIN Status: Acute (2) Current smoker SNOMED Code(s): 94011137 ICD Code: F17.200 - NICOTINE DEPENDENCE, UNSPECIFIED, UNCOMPLICATED Status : Acute (3) Elevated d-dimer SNOMED Code(s): 589722782 ICD Code: R79.89 - OTHER SPECIFIED ABNORMAL FINDINGS OF BLOOD CHEMISTRY Status: Acute - Patient Summary/Data Recommended Follow-up Testing/Procedures: cardiac stress test with echo Hospital Course: admitted overnight on tele without event. no pain or symptoms as before. was a bit dehydrated so received a fluid bolus. serial enzymes and ekgs negative. ct chest abd pelvis negative for aneurysm. pt felt back to baseline following morning and wished to be discharged to home. agrees to follow up with her pcp for recommended outpat cardiac eval. continue home medications. encouraged to stop smoking. nitro use discussed and s/s of ACS discussed and when to take and or call EMS. on baby asa and nathan. has an annual exam with pcp in next two wks. will review at that time. all questions answered and she is comfortable with disposition and follow up recommendations. - Patient Instructions Diet: Heart Healthy Diet Activity: As Tolerated Driving: May Drive Today Showering/Bathing: May Shower - Discharge Plan Home Medications: Home Meds Exenatide Microspheres [Bydureon Pen] 2 mg SQ WE 02/28/17 [History] Gabapentin [Neurontin] 600 mg PO BEDTIME 02/28/17 [History] Insulin Degludec [Tresiba Flextouch U-200] 40 units SQ DAILY 02/28/17 [History] Levothyroxine Sodium [Synthroid] 300 mcg PO DAILY 02/28/17 [History] Lisinopril 10 mg PO DAILY 02/28/17 [History] Nilotinib HCl [Tasigna] 400 mg PO BID 10/12/17 [History] atorvaSTATin Calcium [Atorvastatin Calcium] 20 mg PO BEDTIME 02/28/17 [History] sitaGLIPtin Phos/Metformin HCl [Janumet Xr 50-500 mg Tablet] 1 each PO BID 02/28 [History] guaiFENesin/Codeine Phosphate [Codeine-Guaifen 10-100 mg/5 ml] 5 ml PO TID PRN 08/28/17 [History] Patient Handouts: Acute Coronary Syndrome - Discharge Summary/Plan Comment DC Time >30 min.: Yes - General Info Date of Service: 08/28/17 Functional Status: Reports: Pain Controlled, Tolerating Diet, Ambulating, Urinating. Denies: New Symptoms - Review of Systems General: Reports: No Symptoms HEENT: Reports: No Symptoms Pulmonary: Reports: No Symptoms Cardiovascular: Reports: No Symptoms Gastrointestinal: Reports: No Symptoms Genitourinary: Reports: No Symptoms Musculoskeletal: Reports: No Symptoms Skin: Reports: No Symptoms Neurological: Reports: No Symptoms Psychiatric: Reports: No Symptoms - Patient Data Vitals - Most Recent: Last Vital Signs Temp 98.0 F 08/28/17 03:55 Pulse 78 08/28/17 03:55 Resp 18 08/28/17 03:55 BP 111/61 08/28/17 09:59 Pulse Ox 94 L 08/28/17 03:55 Weight - Most Recent: 109.815 kg Lab Results - Last 24 hrs: Laboratory Results - last 24 hr 08/27/17 08/27/17 08/27/17 Range/Units 23:25 23:25 23:25 WBC 13.8 H (4.5-12.0) X10-3/uL RBC 4.89 (3.23-5.20) x10(6)uL Hgb 14.8 (11.5-15.5) g/dL Hct 42.8 (30.0-51.3) % MCV 87.3 (80-96) fL MCH 30.2 (27.7-33.6) pg MCHC 34.6 (32.2-35.4) g/dL RDW 13.3 (11.5-15.5) % Plt Count 252 (125-369) X10(3)uL MPV 8.4 (7.4-10.4) fL Neut % (Auto) (46-82) % Lymph % (Auto) (13-37) % [place] % (Auto) (4-12) % Eos % (Auto) (1.0-5.0) % Baso % (Auto) (0-2) % Neut # (Auto) (1.6-8.3) # Lymph # (Auto) (0.6-5.0) # [place] # (Auto) (0.0-1.3) # Eos # (Auto) (0.0-0.8) # Baso # (Auto) (0.0-0.2) # Add Manual Diff Yes Neutrophils % (Manual) 86 H (46-82) % Band Neutrophils % 1 (0-6) % Lymphocytes % (Manual) 8 L (13-37) % Monocytes % (Manual) 3 L (4-12) % Eosinophils % (Manual) 2 (0-5) % PT (8.7-11.1) INR (0.89-1.13) D-Dimer, Quantitative (100-400) ng/mL Sodium 139 (135-145) mmol/L Potassium 4.4 (3.5-5.3) mmol/L Chloride 102 (100-110) mmol/L Carbon Dioxide 27 (21-32) mmol/L BUN 21 H (7-18) mg/dL Creatinine 1.0 (0.55-1.02) mg/dL Est Cr Clr Drug Dosing TNP Estimated GFR (MDRD) 55 L (>60) BUN/Creatinine Ratio 21.0 H (9-20) Glucose 196 H (80-116) mg/dL Calcium 9.6 (8.6-10.2) mg/dL Total Bilirubin 0.4 (0.1-1.3) mg/dL AST 15 (5-25) IU/L ALT 31 (12-36) U/L Alkaline Phosphatase 96 (56-112) IU/L Troponin I < 0.017 L (<0.017-0.056) ng/mL C-Reactive Protein 0.5 (0.5-0.9) mg/dL NT-Pro-B Natriuret Pep (<=125) pg/mL Total Protein 7.5 (6.0-8.0) g/dL Albumin 3.5 (3.2-4.6) g/dL Globulin 4.0 g/dL Albumin/Globulin Ratio 0.9 04/10/18 04/10/18 04/10/18 Range/Units 23:25 23:25 23:25 WBC (4.5-12.0) X10-3/uL RBC (3.23-5.20) x10(6)uL Hgb (11.5-15.5) g/dL Hct (30.0-51.3) % MCV (80-96) fL MCH (27.7-33.6) pg MCHC (32.2-35.4) g/dL RDW (11.5-15.5) % Plt Count (125-369) X10(3)uL MPV (7.4-10.4) fL Neut % (Auto) (46-82) % Lymph % (Auto) (13-37) % [place] % (Auto) (4-12) % Eos % (Auto) (1.0-5.0) % Baso % (Auto) (0-2) % Neut # (Auto) (1.6-8.3) # Lymph # (Auto) (0.6-5.0) # [place] # (Auto) (0.0-1.3) # Eos # (Auto) (0.0-0.8) # Baso # (Auto) (0.0-0.2) # Add Manual Diff Neutrophils % (Manual) (46-82) % Band Neutrophils % (0-6) % Lymphocytes % (Manual) (13-37) % Monocytes % (Manual) (4-12) % Eosinophils % (Manual) (0-5) % PT 9.9 (8.7-11.1) INR 0.98 (0.89-1.13) D-Dimer, Quantitative 1020 H (100-400) ng/mL Sodium (135-145) mmol/L Potassium (3.5-5.3) mmol/L Chloride (100-110) mmol/L Carbon Dioxide (21-32) mmol/L BUN (7-18) mg/dL Creatinine (0.55-1.02) mg/dL Est Cr Clr Drug Dosing Estimated GFR (MDRD) (>60) BUN/Creatinine Ratio (9-20) Glucose (80-116) mg/dL Calcium (8.6-10.2) mg/dL Total Bilirubin (0.1-1.3) mg/dL AST (5-25) IU/L ALT (12-36) U/L Alkaline Phosphatase (56-112) IU/L Troponin I (<0.017-0.056) ng/mL C-Reactive Protein (0.5-0.9) mg/dL NT-Pro-B Natriuret Pep 180 H (<=125) pg/mL Total Protein (6.0-8.0) g/dL Albumin (3.2-4.6) g/dL Globulin g/dL Albumin/Globulin Ratio 08/28/17 08/28/17 08/28/17 Range/Units 06:25 06:25 06:25 WBC 10.1 (4.5-12.0) X10-3/uL RBC 4.52 (3.23-5.20) x10(6)uL Hgb 13.4 (11.5-15.5) g/dL Hct 39.0 (30.0-51.3) % MCV 86.4 (80-96) fL MCH 29.7 (27.7-33.6) pg MCHC 34.3 (32.2-35.4) g/dL RDW 13.3 (11.5-15.5) % Plt Count 232 (125-369) X10(3)uL MPV 8.5 (7.4-10.4) fL Neut % (Auto) 70.8 (46-82) % Lymph % (Auto) 20.1 (13-37) % [place] % (Auto) 5.3 (4-12) % Eos % (Auto) 3 (1.0-5.0) % Baso % (Auto) 1 (0-2) % Neut # (Auto) 7.2 (1.6-8.3) # Lymph # (Auto) 2.0 (0.6-5.0) # [place] # (Auto) 0.5 (0.0-1.3) # Eos # (Auto) 0.3 (0.0-0.8) # Baso # (Auto) 0.1 (0.0-0.2) # Add Manual Diff Neutrophils % (Manual) (46-82) % Band Neutrophils % (0-6) % Lymphocytes % (Manual) (13-37) % Monocytes % (Manual) (4-12) % Eosinophils % (Manual) (0-5) % PT (8.7-11.1) INR (0.89-1.13) D-Dimer, Quantitative (100-400) ng/mL Sodium 141 (135-145) mmol/L Potassium 4.1 (3.5-5.3) mmol/L Chloride 106 (100-110) mmol/L Carbon Dioxide 27 (21-32) mmol/L BUN 16 (7-18) mg/dL Creatinine 0.8 (0.55-1.02) mg/dL Est Cr Clr Drug Dosing 64.54 Estimated GFR (MDRD) > 60 (>60) BUN/Creatinine Ratio 20.0 (9-20) Glucose 128 H (80-116) mg/dL Calcium 9.1 (8.6-10.2) mg/dL Total Bilirubin (0.1-1.3) mg/dL AST (5-25) IU/L ALT (12-36) U/L Alkaline Phosphatase (56-112) IU/L Troponin I < 0.017 L (<0.017-0.056) ng/mL C-Reactive Protein (0.5-0.9) mg/dL NT-Pro-B Natriuret Pep (<=125) pg/mL Total Protein (6.0-8.0) g/dL Albumin (3.2-4.6) g/dL Globulin g/dL Albumin/Globulin Ratio Med Orders - Current: Current Medications Acetaminophen (Tylenol) 650 mg PO Q4H PRN PRN Reason: Pain (Mild 1-3)/fever Atorvastatin Calcium (Lipitor) 20 mg PO BEDTIME [facility] Enoxaparin Sodium (Lovenox) 40 mg SUBCUT Q24H [facility] Last Admin: 08/28/17 04:26 Dose: 40 mg Gabapentin (Neurontin) 600 mg PO BEDTIME [place] Sodium Chloride (Normal Saline) 1,000 mls @ 999 mls/hr IV ASDIRECTED [facility] Last Admin: 08/27/17 23:54 Dose: 999 mls/hr Sodium Chloride (Normal Saline) 1,000 mls @ 50 mls/hr IV ASDIRECTED [facility] Last Admin: 08/28/17 04:27 Dose: 50 mls/hr Lisinopril (Prinivil) 10 mg PO DAILY [facility] Last Admin: 08/28/17 09:59 Dose: 10 mg Nitroglycerin (Nitrostat) 0.4 mg SL Q5M PRN PRN Reason: Chest Pain Exenatide Microspheres [ Bydureon Pen] 2 Mg 2 mg SQ We [facility] Last Admin: 08/28/17 10:33 Dose: 2 mg Tresiba *Ptom 0 units SQ DAILY [facility] Last Admin: 08/28/17 10:04 Dose: 40 units Synthroid 300mcg * (Ptom) 0 mcg PO DAILY [facility] Last Admin: 08/28/17 10:00 Dose: 300 mcg Nilotinib Hcl [ Tasigna] 400 Mg * Ptom 400 mg PO BID [facility] Last Admin: 08/28/17 10:34 Dose: 400 mg Ondansetron HCl (Zofran) 4 mg IV Q4H PRN PRN Reason: Nausea/Vomiting Sitagliptin Phosphate (Januvia) 50 mg PO DAILY [facility] Discontinued Medications Iopamidol (Isovue-370 (76%)) 150 ml IV ONETIME ONE Stop: 08/28/17 00:44 Last Admin: 08/28/17 00:50 Dose: 116 ml - Exam Physical Findings Comments:: General: Alert, Oriented, Cooperative. No: Mild Distress HEENT: Conjunctiva Clear No: Scleral Icterus Neck: Supple, Trachea Midline, +2 Carotid Pulse wo Bruit. No: Lymphadenopathy, JVD Lungs: Clear to Auscultation, Normal Respiratory Effort. No: Rhonchi, Rub Cardiovascular: Regular Rate, Regular Rhythm, Normal S1, Normal S2 GI/Abdominal Exam: Normal Bowel Sounds, Soft, Non-Tender, No Abnormal Bruit, No Mass Back Exam: Normal Inspection, Full Range of Motion. No: CVA Tenderness (R), CVA Tenderness (L), Paraspinal Tenderness, Vertebral Tenderness Extremities: Non-Tender, Normal Capillary Refill, Leg Pain Skin: Warm, Dry, Intact. No: Wound Psychiatric: Alert, Normal Affect, Normal Mood
--- NOTE | 2017-08-28 12:18 | CR ---
INDICATION: Chest pain. CHEST: An AP upright view of the chest was obtained 08/28/2017 and compared with 08/12/2008 and 08/11/2008, revealing the heart to be within normal limits in size, allowing for AP positioning. Minimal calcification is suggested in the arch of the aorta. Overlying EKG leads and overlying snap noted. Some hyperaeration with slight flattening of diaphragm leaves raises question of COPD - correlate clinically. A definite active infiltrate or effusion was not seen. IMPRESSION: No acute process. MTDD
[2017-08-28] MEDS ORDERED: Gabapentin 600 MG Tab *PTOM PO SCH (21:00)
[2017-08-28] MEDS ORDERED: atorvaSTATin 20 MG Tab *PTOM PO SCH (21:00)
== END 2017-08-28 11:44 | disposition home or self-care (01) ==
LOC: FB.ED 23:03 → FB.MS 08-28 03:00
PROVIDERS: ADMIT Emergency Medicine; ATTEND Family Medicine
DX: R07.89 Other chest pain (principal); R79.89 Other specified abnormal findings of blood chemistry; E11.9 Type 2 diabetes mellitus without complications; E03.9 Hypothyroidism, unspecified; J18.9 Pneumonia, unspecified organism; F17.200 Nicotine dependence, unspecified, uncomplicated; Z79.4 Long term (current) use of insulin; Z79.899 Other long term (current) drug therapy; Z88.0 Allergy status to penicillin; Z88.2 Allergy status to sulfonamides; F17.210 Nicotine dependence, cigarettes, uncomplicated
CPT/HCPCS: 36415; 71045; 71275; 74174; 80048; 80053; 83880; 84484; 85025; 85379; 85610; 86140; 93005; 93010; 96360; 96361; 96372; 99285; A9270; G0378; J1650; J7040; Q9967

== ENCOUNTER 2017-08-29 17:33 | Emergency (ER) | payer MEDICARE, BC ==
--- NOTE | 2017-08-29 23:38 | ER ---
DATE SEEN: 08/29/2017 REASON FOR VISIT: Numbness of the right leg. HISTORY OF PRESENT ILLNESS: A 67-year-old female with numbness of the right leg for about 12 hours, sudden onset, also feeling cold, but no pain. REVIEW OF SYSTEMS: No swelling. No trauma. PAST MEDICAL HISTORY: Recently admitted for chest pain. She also has history of tobacco abuse and type 2 diabetes. PHYSICAL EXAMINATION: GENERAL: Not in any distress. VITAL SIGNS: Blood pressure and temperature within normal limits. EXTREMITIES: Right lower extremity, mild discoloration. No tenderness to palpation. Capillary refill is mildly delayed. I was able also to hear the dorsalis pedis pulse by ultrasound. LABORATORY: None. Ultrasound of the veins was negative for DVT. IMPRESSION: Peripheral vascular disease. PLAN: I discussed urgent need for evaluation with an YOON and referral to Vascular Surgery that she has an appointment tomorrow. I discussed that she could start aspirin 81 mg a day and quit smoking. I discharged her in satisfactory condition and painless. No paralysis was noted as well. Time seen was 1915 hours. /[id number] EMILIANO/POLIL
--- NOTE | 2017-08-30 10:44 | US ---
INDICATION: Cold left foot. DUPLEX ULTRASOUND, LEFT LOWER EXTREMITY VEINS: Utilizing 2-D real time, duplex Doppler spectral analysis, and color flow imaging, examination of the left lower extremity veins revealed no evidence of deep venous thrombosis or obstruction. Compression views showed no abnormal lack of compression to suggest thrombosis. No evidence of incompetence of the valves was identified. Greater saphenous vein has been excised. IMPRESSION: Duplex ultrasound, left lower extremity veins, shows no evidence of deep venous thrombosis or incompetence. [facility]
== END 2017-08-29 20:39 | disposition home or self-care (01) ==
LOC: FB.ED 17:33
DX: I73.9 Peripheral vascular disease, unspecified (principal); E11.9 Type 2 diabetes mellitus without complications
CPT/HCPCS: 93971-LT; 99285

== ENCOUNTER 2018-10-25 22:18 | Emergency (ER) | payer MEDICARE, BC ==
--- NOTE | 2018-10-25 22:55 | EDM.PDOC ---
ED HPI GENERAL MEDICAL PROBLEM - General Chief Complaint: General Stated Complaint: SOB, FATIGUE Time Seen by Provider: 10/25/18 22:30 Source of Information: Reports: Patient, Old Records History Limitations: Reports: No Limitations - History of Present Illness INITIAL COMMENTS - FREE TEXT/NARRATIVE: Patient is a very pleasant 68-year-old female who presents with concern for feeling panicky on a regular basis when she is at home. She states when this episode occur, nothing seems to help. It can last anywhere from 2 minutes to about an hour, she sometimes feels a bit short of breath with it. She states it happened about 5 or 6 times today. These episodes have been recurrent over the past week. No appetite, also reports she hasn't taken her medication for approximately 2 days. Her son who accompanies with her said 2 weeks ago she had a similar presentation, ultimately ended up sick for about 4 days and then was admitted to the hospital with very complete workup done. All of her testing was normal except for a question about some fluid around her heart. Ultimately a cardiac MRI was done in [place]. I do not the results for this, however the rest of the [place] paperwork was able to be reviewed. She had a negative nuclear stress test and no blood clots were seen at that time, however she did have a recent hospitalization just prior to that with a right leg arterial clot that required surgery. She has had ongoing pain in her right leg following a surgery to remove the clot. She denies any ongoing chest pain, chest pressure, feeling short of breath with exertion except for during her episode, pleuritic chest pain, cough , no edema in her legs, no significant change in weight at home. Her sugars have been a little bit high, but not abnormal for her. She denies any fever, chills or sweats. She denies any urinary symptoms such as increased urination, frequency or urgency. Denies any nausea, vomiting or diarrhea, she denies any sweating, fevers or chills. Mainly she states that food just doesn't taste very good. She has not traveled anywhere recently. Her son notes that she has had significant psychosocial stressors with a recent decision to sell some land which is opposed by the family, and also an ongoing dispute with [facility] or [facility]. She does drink a significant amount of caffeine and always has, states this does not disrupt her sleep. She has a remote history of panic attacks, however states that she has not had any for his best they can tell, her symptoms of feeling panicked seemed to start around the time her insulin was changed. She is quite frustrated that she has had more than one medical workup for this and has not found any solution. - Related Data Allergies Allergy/AdvReac Type Severity Reaction Status Date / Time Penicillins Allergy Rash Verified 10/25/18 22:55 Sulfa (Sulfonamide Allergy Rash Verified 10/25/18 22:55 Antibiotics) Home Meds: Home Meds Insulin Degludec [Tresiba Flextouch U-200] 40 units SQ DAILY 02/28/17 [History] Lisinopril 10 mg PO DAILY 02/28/17 [History] Nilotinib HCl [Tasigna] 400 mg PO BID 02/28/17 [History] atorvaSTATin Calcium [Atorvastatin Calcium] 20 mg PO BEDTIME 02/28/17 [History] sitaGLIPtin Phos/Metformin HCl [Janumet Xr 50-500 mg Tablet] 1 each PO BID 02/28 [History] .Ozempic 1 mg SQ Q7D 10/27/18 [History] Insulin Aspart [NovoLOG] 0 unit SQ ASDIRECTED 10/27/18 [History] Levothyroxine 200 mcg PO DAILY 10/27/18 [History] Past Medical History HEENT History: Reports: Impaired Vision Other HEENT History: wears glasses Cardiovascular History: Reports: Blood Clots/VTE/DVT, Hypertension, Other (See Below) Other Cardiovascular History: Hx DVT right leg, has stent and ballon placed, takes anticoagulants. Respiratory History: Reports: COPD, Pneumonia, Recurrent HOME SUPPORT WORKER History: Reports: Psychiatric History: Reports: Panic Attack Endocrine/Metabolic History: Reports: Diabetes, Type II, Hypothyroidism Hematologic History: Reports: Anticoagulation Therapy, Other (See Below) Other Hematologic History: Takes anticoagulants for hx DVT. Oncologic (Cancer) History: Reports: Leukemia, Other (See Below) Other Oncologic History: CML. - Infectious Disease History Infectious Disease History: Reports: Chicken Pox - Past Surgical History GI Surgical History: Reports: Appendectomy, Cholecystectomy Female Surgical History: Reports: Other (See Below) Other Female Surgeries/Procedures: Ovarian cyst. Cervical cancer. Social & Family History - Family History Family Medical History: Noncontributory - Tobacco Use Smoking Status *Q: Former Smoker Years of Tobacco use: 50 Used Tobacco, but Quit: No - Caffeine Use Caffeine Use: Reports: Coffee, Soda - Alcohol Use Alcohol Use History: Yes Alcohol Use Comment: rare social drink, wine - Recreational Drug Use Recreational Drug Use: No Other Recreational Drug Type: Patient denies recreational drug use. 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 recently decided to sell land but is getting resistance from family. has had ongoing IRS issue for 2 years from previous sale. ED ROS GENERAL - Review of Systems Review Of Systems: ROS reveals no pertinent complaints other than HPI. ED EXAM, GENERAL - Physical Exam Exam: See Below Free Text/Narrative:: Gen.: Alert, somewhat anxious affect but otherwise no acute distress. Very pleasant. Pupils are equal and reactive, extraocular motion intact. Facial muscles are symmetric and she has equal sensation on both sides of her face. Throat is without erythema, mucous murmurs moist and there is no tonsillar enlargement or exudates, uvula midline, tongue midline. Range of motion is full. Muscle strength +5 out of 5 in both upper and lower extremities and equal side to side, no pronator drift. Gait is normal. Lungs are clear throughout with no wheezes or crackles and heart is regular rate and rhythm, I do not hear murmur. Abdomen positive bowel sounds, soft nondistended and nontender. +2 pulses in both the upper and lower extremities equal bilaterally, no lower extremity edema, no calf swelling and calves. Equal side to side. No obvious skin lesions or rashes. No joint swelling Course - Vital Signs Text/Narrative:: Initial impression- patient with history of cardiovascular problems, also history of arterial clot for which she recently had surgery. Under significant stress at home which is likely contributing, as well as multiple medical issues. We'll get labs, EKG does not show any new findings. Last Recorded V/S: Last Vital Signs Temp 36.4 C 10/26/18 01:15 Pulse 58 L 10/26/18 01:15 Resp 16 10/26/18 01:15 BP 144/70 H 10/26/18 01:15 Pulse Ox 98 10/26/18 01:15 - Orders/Labs/Meds Labs: Laboratory Tests 06/08/19 06/08/19 06/08/19 Range/Units 00:55 23:08 23:08 WBC 9.0 (4.5-12.0) X10-3/uL RBC 4.49 (3.23-5.20) x10(6)uL Hgb 12.9 (11.5-15.5) g/dL Hct 38.2 (30.0-51.3) % MCV 85.2 (80-96) fL MCH 28.8 (27.7-33.6) pg MCHC 33.8 (32.2-35.4) g/dL RDW 14.4 (11.5-15.5) % Plt Count 222 (125-369) X10(3)uL MPV 8.6 (7.4-10.4) fL Neut % (Auto) 76.1 (46-82) % Lymph % (Auto) 15.5 (13-37) % Lea % (Auto) 5.4 (4-12) % Eos % (Auto) 3 (1.0-5.0) % Baso % (Auto) 1 (0-2) % Neut # (Auto) 6.9 (1.6-8.3) # Lymph # (Auto) 1.4 (0.6-5.0) # Lea # (Auto) 0.5 (0.0-1.3) # Eos # (Auto) 0.2 (0.0-0.8) # Baso # (Auto) 0.0 (0.0-0.2) # Sodium 142 (135-145) mmol/L Potassium 3.9 (3.5-5.3) mmol/L Chloride 105 (100-110) mmol/L Carbon Dioxide 27 (21-32) mmol/L BUN 20 H (7-18) mg/dL Creatinine 0.9 (0.55-1.02) mg/dL Est Cr Clr Drug Dosing 56.56 mL/min Estimated GFR (MDRD) > 60 (>60) BUN/Creatinine Ratio 22.2 H (9-20) Glucose 178 H (80-116) mg/dL Lactic Acid (0.4-2.2) mmol/L Calcium 9.6 (8.6-10.2) mg/dL Magnesium (1.8-2.5) mg/dL Total Bilirubin 0.7 (0.1-1.3) mg/dL AST 20 D (5-25) IU/L ALT 42 H D (12-36) U/L Alkaline Phosphatase 126 H (56-112) IU/L Troponin I (<0.017-0.056) ng/mL C-Reactive Protein (0.5-0.9) mg/dL NT-Pro-B Natriuret Pep (<=125) pg/mL Total Protein 7.4 (6.0-8.0) g/dL Albumin 3.7 (3.2-4.6) g/dL Globulin 3.7 g/dL Albumin/Globulin Ratio 1.0 Urine Color Yellow (YELLOW) Urine Appearance Slightly cloudy (CLEAR) Urine pH 5.0 (5.0-6.5) Ur Specific [place] 1.030 H (1.010-1.025) Urine Protein Negative (NEGATIVE) mg/dL Urine Glucose (UA) Normal (NORMAL) mg/dL Urine Ketones Negative (NEGATIVE) mg/dL Urine Occult Blood Moderate H (NEGATIVE) Urine Nitrite Negative (NEGATIVE) Urine Bilirubin Negative (NEGATIVE) Urine Urobilinogen Normal (NEGATIVE) mg/dL Ur Leukocyte Esterase Large H (NEGATIVE) Urine RBC 0-5 (0-5) Urine WBC 10-20 H (0-5) Ur Squamous Epith Cells Few H (NS,R,O) Calcium Oxalate Crystal Few H (NS) Urine Bacteria Few H (NS) 10/25/18 10/25/18 10/25/18 Range/Units 23:08 23:08 23:08 WBC (4.5-12.0) X10-3/uL RBC (3.23-5.20) x10(6)uL Hgb (11.5-15.5) g/dL Hct (30.0-51.3) % MCV (80-96) fL MCH (27.7-33.6) pg MCHC (32.2-35.4) g/dL RDW (11.5-15.5) % Plt Count (125-369) X10(3)uL MPV (7.4-10.4) fL Neut % (Auto) (46-82) % Lymph % (Auto) (13-37) % Lea % (Auto) (4-12) % Eos % (Auto) (1.0-5.0) % Baso % (Auto) (0-2) % Neut # (Auto) (1.6-8.3) # Lymph # (Auto) (0.6-5.0) # Lea # (Auto) (0.0-1.3) # Eos # (Auto) (0.0-0.8) # Baso # (Auto) (0.0-0.2) # Sodium (135-145) mmol/L Potassium (3.5-5.3) mmol/L Chloride (100-110) mmol/L Carbon Dioxide (21-32) mmol/L BUN (7-18) mg/dL Creatinine (0.55-1.02) mg/dL Est Cr Clr Drug Dosing mL/min Estimated GFR (MDRD) (>60) BUN/Creatinine Ratio (9-20) Glucose (80-116) mg/dL Lactic Acid 0.8 (0.4-2.2) mmol/L Calcium (8.6-10.2) mg/dL Magnesium (1.8-2.5) mg/dL Total Bilirubin (0.1-1.3) mg/dL AST (5-25) IU/L ALT (12-36) U/L Alkaline Phosphatase (56-112) IU/L Troponin I < 0.017 L (<0.017-0.056) ng/mL C-Reactive Protein < 0.2 L (0.5-0.9) mg/dL NT-Pro-B Natriuret Pep (<=125) pg/mL Total Protein (6.0-8.0) g/dL Albumin (3.2-4.6) g/dL Globulin g/dL Albumin/Globulin Ratio Urine Color (YELLOW) Urine Appearance (CLEAR) Urine pH (5.0-6.5) Ur Specific [place] (1.010-1.025) Urine Protein (NEGATIVE) mg/dL Urine Glucose (UA) (NORMAL) mg/dL Urine Ketones (NEGATIVE) mg/dL Urine Occult Blood (NEGATIVE) Urine Nitrite (NEGATIVE) Urine Bilirubin (NEGATIVE) Urine Urobilinogen (NEGATIVE) mg/dL Ur Leukocyte Esterase (NEGATIVE) Urine RBC (0-5) Urine WBC (0-5) Ur Squamous Epith Cells (NS,R,O) Calcium Oxalate Crystal (NS) Urine Bacteria (NS) 10/25/18 10/25/18 Range/Units 23:08 23:08 WBC (4.5-12.0) X10-3/uL RBC (3.23-5.20) x10(6)uL Hgb (11.5-15.5) g/dL Hct (30.0-51.3) % MCV (80-96) fL MCH (27.7-33.6) pg MCHC (32.2-35.4) g/dL RDW (11.5-15.5) % Plt Count (125-369) X10(3)uL MPV (7.4-10.4) fL Neut % (Auto) (46-82) % Lymph % (Auto) (13-37) % Lea % (Auto) (4-12) % Eos % (Auto) (1.0-5.0) % Baso % (Auto) (0-2) % Neut # (Auto) (1.6-8.3) # Lymph # (Auto) (0.6-5.0) # Lea # (Auto) (0.0-1.3) # Eos # (Auto) (0.0-0.8) # Baso # (Auto) (0.0-0.2) # Sodium (135-145) mmol/L Potassium (3.5-5.3) mmol/L Chloride (100-110) mmol/L Carbon Dioxide (21-32) mmol/L BUN (7-18) mg/dL Creatinine (0.55-1.02) mg/dL Est Cr Clr Drug Dosing mL/min Estimated GFR (MDRD) (>60) BUN/Creatinine Ratio (9-20) Glucose (80-116) mg/dL Lactic Acid (0.4-2.2) mmol/L Calcium (8.6-10.2) mg/dL Magnesium 1.9 (1.8-2.5) mg/dL Total Bilirubin (0.1-1.3) mg/dL AST (5-25) IU/L ALT (12-36) U/L Alkaline Phosphatase (56-112) IU/L Troponin I (<0.017-0.056) ng/mL C-Reactive Protein (0.5-0.9) mg/dL NT-Pro-B Natriuret Pep 128 H (<=125) pg/mL Total Protein (6.0-8.0) g/dL Albumin (3.2-4.6) g/dL Globulin g/dL Albumin/Globulin Ratio Urine Color (YELLOW) Urine Appearance (CLEAR) Urine pH (5.0-6.5) Ur Specific [place] (1.010-1.025) Urine Protein (NEGATIVE) mg/dL Urine Glucose (UA) (NORMAL) mg/dL Urine Ketones (NEGATIVE) mg/dL Urine Occult Blood (NEGATIVE) Urine Nitrite (NEGATIVE) Urine Bilirubin (NEGATIVE) Urine Urobilinogen (NEGATIVE) mg/dL Ur Leukocyte Esterase (NEGATIVE) Urine RBC (0-5) Urine WBC (0-5) Ur Squamous Epith Cells (NS,R,O) Calcium Oxalate Crystal (NS) Urine Bacteria (NS) Meds: Medications Discontinued Medications Generic Name Dose Route Start Last Admin Trade Name Freq PRN Reason Stop Dose Admin Sodium Chloride 1,000 mls @ 125 mls/hr 10/25/18 23:00 10/25/18 23:15 Normal Saline IV 125 mls/hr ASDIRECTED [facility] Administration - Re-Assessments/Exams Free Text/Narrative Re-Assessment/Exam: labs reviewed, within normal limits. patient clearly somewhat frustrated, has had another workup recently which was unrevealing. Urine meeting criteria for culture but patient is asymptomatic, so will not rx antibiotic at this time. lengthy discussion with patient and son regarding psychosocial effects and multiple medical problems and the effect these have on health. Discussed consideration of decreasing caffeine, maintaining some social activities, exercise as able as directed by PCP, sleep hygiene. Strongly recommended followup with PCP and may benefit greatly from either a PRN for anxiety or ongoing anxiety medication. All questions were answered, they are in agreement with this plan. Departure - Departure Time of Disposition: 01:33 Disposition: Home, Self-Care 01 Clinical Impression: Feeling anxious - Discharge Information *PRESCRIPTION DRUG MONITORING PROGRAM REVIEWED*: Not Applicable *COPY OF PRESCRIPTION DRUG MONITORING REPORT IN PATIENT PETER: Not Applicable Referrals: Peri Theodore, [facility] [Primary Care Provider] - Forms: ED Department Discharge Additional Instructions: call PCP on Saturday morning - I agree with talking with her about maybe something for anxiety, this is a really common problem with multiple medical issues and multiple home stressors if wake up feeling panicked - check blood glucose. If less than 100 have a snack bar or small cup of juice or pop (8oz) regular exercise - even just walking (like a puppy) is very helpful social activities like caring for grandkids are usually also therapeutic it is important to not get dehydrated in the heat - this may also be something to talk with PCP about if worsening symptoms, return to ER for re-evaluation
[2018-10-25] MEDS ORDERED: Sodium Chloride 0.9% 1,000 ML IV SCH (23:00)
--- NOTE | 2018-10-27 13:28 | CR ---
INDICATION: Short of breath. CHEST: PA and lateral views of the chest were obtained 10/25/18 and compared with 08/28/17 and 08/12/08. Prominent AP diameter with somewhat flattened diaphragm leaves, hyperaeration, and interdigitation of diaphragm leaves suggests COPD. Overlying EKG leads are noted. The heart is normal in size and shape. The mediastinum is essentially unremarkable. Bone structures appear to be intact. Markings appear similar to previous examination, likely minimal fibrotic change is present, with no definite active infiltrate or effusion identified. IMPRESSION: 1. No definite acute process. 2. Probable COPD. 3. Minimal ASD aorta. There is suggestion of some minimal calcification in the arch. MTDD
== END 2018-10-26 01:55 | disposition home or self-care (01) ==
LOC: FB.ED 22:18
DX: F41.9 Anxiety disorder, unspecified (principal); J44.9 Chronic obstructive pulmonary disease, unspecified; Z79.01 Long term (current) use of anticoagulants; Z79.4 Long term (current) use of insulin; Z79.899 Other long term (current) drug therapy; Z88.0 Allergy status to penicillin
CPT/HCPCS: 36415; 71046; 80053; 81001; 83605; 83735; 83880; 84484; 85025; 86140; 87086; 87088; 87186; 93005; 96360; 96361; 99284; J7030

== ENCOUNTER 2018-10-28 17:34 | Emergency (ER) | payer MEDICARE, BC ==
[2018-10-28] MEDS ORDERED: EPINEPHrine 1 MG/ML SDV ONE ×2 (17:47→18:06)
[2018-10-28] MEDS ORDERED: EPINEPHrine 1 MG/ML SDV IM ONE ×2 (17:51→18:08)
[2018-10-28] MEDS ORDERED: diphenhydrAMINE 50 MG/ML SDV IVPUSH ONE (17:53)
[2018-10-28] MEDS ORDERED: methylPREDNISolone Sodium Succinate 125 MG/2 ML SDV IVPUSH ONE (17:56)
[2018-10-28] MEDS ORDERED: Famotidine/Normal Saline 20 MG in Premix Bag 1 BAG IV ONE (18:04)
[2018-10-28] MEDS ORDERED: Sodium Chloride 0.9% 1,000 ML IV ONE (18:15)
[2018-10-28] MEDS ORDERED: Sodium Chloride 0.9% 1,000 ML IV SCH (18:45)
--- NOTE | 2018-10-28 20:12 | EDM.PDOC ---
ED HPI GENERAL MEDICAL PROBLEM - General Chief Complaint: General Stated Complaint: LOW BLOOD PRESSURE Time Seen by Provider: 10/28/18 17:40 Source of Information: Reports: Patient, EMS, Family History Limitations: Reports: No Limitations - History of Present Illness INITIAL COMMENTS - FREE TEXT/NARRATIVE: brought in from home by EMS, daughter accompanying, states that patient was suddenly started feeling short of breath this afternoon and had a low pressure ( daughter is a nurse). Ambulance called; given 1L NS en route to the hospital. Patient states she was seen in primary care office this afternoon and started on doxycycline for UTI, celexa and xanax for anxiety. She had been seen in the ER last saturday and urine culture grew a UTI, for which antibiotics were ordered, however patient tells me that she never took that one. She took the above mentioned medications today after seeing her primary. She has a remote history of allergy to penicillin and mostly what she remembers is being given a shot for it. She states she felt well prior to her appointment today and other than increased frequency of urine was not having fever, chest pain, headache, or shortness of breath, had not eaten anything unusual, no leg swelling, normal activity during the day. When asked, she responds yes that her throat feels funny and she feels its hard to get air in. BP is quite low upon arrival, 80/47. Decision made to treat as anaphylaxis and IM epinephrine ordered, see course. - Related Data Allergies Allergy/AdvReac Type Severity Reaction Status Date / Time Penicillins Allergy Rash Verified 10/28/18 20:10 Sulfa (Sulfonamide Allergy Rash Verified 10/28/18 20:10 Antibiotics) Home Meds: Home Meds Insulin Degludec [Tresiba Flextouch U-200] 40 units SQ DAILY 02/28/17 [History] Lisinopril 10 mg PO DAILY 02/28/17 [History] Nilotinib HCl [Tasigna] 400 mg PO BID 02/28/17 [History] atorvaSTATin Calcium [Atorvastatin Calcium] 20 mg PO BEDTIME 02/28/17 [History] sitaGLIPtin Phos/Metformin HCl [Janumet Xr 50-500 mg Tablet] 1 each PO BID 02/28 [History] .Ozempic 1 mg SQ Q7D 10/27/18 [History] Insulin Aspart [NovoLOG] 0 unit SQ ASDIRECTED 10/27/18 [History] Levothyroxine 200 mcg PO DAILY 10/27/18 [History] Past Medical History HEENT History: Reports: Impaired Vision Other HEENT History: wears glasses Cardiovascular History: Reports: Blood Clots/VTE/DVT, Hypertension, Other (See Below) Other Cardiovascular History: Hx DVT right leg, has stent and ballon placed, takes anticoagulants. 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 Oncologic (Cancer) History: Reports: Leukemia, Other (See Below) Other Oncologic History: CML. - Infectious Disease History Infectious Disease History: Reports: Chicken Pox - Past Surgical History GI Surgical History: Reports: Appendectomy, Cholecystectomy Female Surgical History: Reports: Other (See Below) Other Female Surgeries/Procedures: Ovarian cyst. Cervical cancer. Social & Family History - Family History Family Medical History: Noncontributory - Tobacco Use Smoking Status *Q: Unknown Ever Smoked - Caffeine Use Caffeine Use: Reports: Coffee, Soda - Recreational Drug Use Recreational Drug Use: No - Living Situation & Occupation Living situation: Reports: Occupation: Retired Social History Comment: significant psychosocial stressors ED ROS GENERAL - Review of Systems Review Of Systems: Unable To Obtain ED EXAM, GENERAL - Physical Exam Exam: See Below Free Text/Narrative:: General: alert, moderate distress, though able to speak in multiple word phrases. Pupils equal, facial muscles symmetric. Moving neck. Tongue appears to be swollen. Lungs clear with good air movement, heart regular. Peripheral pulses present, no lower extremity edema. Abdomen +BS, soft, epigastric tenderness, no rebound or guarding. Skin dry, no obvious rashes or lesions. equal strength bilaterally in both upper and lower extremities. Course - Vital Signs Text/Narrative:: initial differentiallow BP prior to arrival, new medication of doxycycline as well as Xanax and Celexa which she took this afternoon. Second dose of Xanax taken later. History of reaction to another antibiotic she thinks penicillin, sounds to be anaphylaxis. Decision made based upon presentation to give IM Epinephrine. labs drawn, patient maintaining sats on 2L NC. Feels somewhat more panicky after epinephrine. Will give IV benadryl, 125mg solumedrol, 20mg IV pepcid. Continue IVF - Orders/Labs/Meds Orders: Active Orders 24 hr Category Date Time Status Chest 1V Frontal [CR] Stat Exams 10/28/18 18:09 Taken Labs: Laboratory Tests 10/28/18 10/28/18 10/28/18 Range/Units 18:05 18:05 18:05 WBC 10.9 (4.5-12.0) X10-3/uL RBC 4.19 (3.23-5.20) x10(6)uL Hgb 12.4 (11.5-15.5) g/dL Hct 35.9 (30.0-51.3) % MCV 85.8 (80-96) fL MCH 29.6 (27.7-33.6) pg MCHC 34.5 (32.2-35.4) g/dL RDW 14.5 (11.5-15.5) % Plt Count 233 (125-369) X10(3)uL MPV 8.9 (7.4-10.4) fL Neut % (Auto) 72.6 (46-82) % Lymph % (Auto) 17.2 (13-37) % [place] % (Auto) 7.9 (4-12) % Eos % (Auto) 2 (1.0-5.0) % Baso % (Auto) 0 (0-2) % Neut # (Auto) 7.9 (1.6-8.3) # Lymph # (Auto) 1.9 (0.6-5.0) # [place] # (Auto) 0.9 (0.0-1.3) # Eos # (Auto) 0.2 (0.0-0.8) # Baso # (Auto) 0.0 (0.0-0.2) # PT 9.9 (8.7-11.1) INR 1.02 (0.89-1.13) Sodium 143 (135-145) mmol/L Potassium 3.6 (3.5-5.3) mmol/L Chloride 107 (100-110) mmol/L Carbon Dioxide 22 (21-32) mmol/L BUN 25 H (7-18) mg/dL Creatinine 1.7 H (0.55-1.02) mg/dL Est Cr Clr Drug Dosing TNP Estimated GFR (MDRD) 30 L (>60) BUN/Creatinine Ratio 14.7 (9-20) Glucose 169 H (80-116) mg/dL Calcium 9.2 (8.6-10.2) mg/dL Total Bilirubin 1.0 (0.1-1.3) mg/dL AST 24 D (5-25) IU/L ALT 49 H D (12-36) U/L Alkaline Phosphatase 112 (56-112) IU/L Troponin I (<0.017-0.056) ng/mL C-Reactive Protein (0.5-0.9) mg/dL Total Protein 6.5 (6.0-8.0) g/dL Albumin 3.3 (3.2-4.6) g/dL Globulin 3.2 g/dL Albumin/Globulin Ratio 1.0 10/28/18 10/28/18 Range/Units 18:05 18:05 WBC (4.5-12.0) X10-3/uL RBC (3.23-5.20) x10(6)uL Hgb (11.5-15.5) g/dL Hct (30.0-51.3) % MCV (80-96) fL MCH (27.7-33.6) pg MCHC (32.2-35.4) g/dL RDW (11.5-15.5) % Plt Count (125-369) X10(3)uL MPV (7.4-10.4) fL Neut % (Auto) (46-82) % Lymph % (Auto) (13-37) % [place] % (Auto) (4-12) % Eos % (Auto) (1.0-5.0) % Baso % (Auto) (0-2) % Neut # (Auto) (1.6-8.3) # Lymph # (Auto) (0.6-5.0) # [place] # (Auto) (0.0-1.3) # Eos # (Auto) (0.0-0.8) # Baso # (Auto) (0.0-0.2) # PT (8.7-11.1) INR (0.89-1.13) Sodium (135-145) mmol/L Potassium (3.5-5.3) mmol/L Chloride (100-110) mmol/L Carbon Dioxide (21-32) mmol/L BUN (7-18) mg/dL Creatinine (0.55-1.02) mg/dL Est Cr Clr Drug Dosing Estimated GFR (MDRD) (>60) BUN/Creatinine Ratio (9-20) Glucose (80-116) mg/dL Calcium (8.6-10.2) mg/dL Total Bilirubin (0.1-1.3) mg/dL AST (5-25) IU/L ALT (12-36) U/L Alkaline Phosphatase (56-112) IU/L Troponin I 0.018 (<0.017-0.056) ng/mL C-Reactive Protein < 0.2 L (0.5-0.9) mg/dL Total Protein (6.0-8.0) g/dL Albumin (3.2-4.6) g/dL Globulin g/dL Albumin/Globulin Ratio Meds: Medications Discontinued Medications Generic Name Dose Route Start Last Admin Trade Name Freq PRN Reason Stop Dose Admin Diphenhydramine HCl 50 mg 10/28/18 17:53 10/28/18 21:04 Benadryl IVPUSH 10/28/18 17:54 50 mg ONETIME ONE Administration Epinephrine HCl Confirm 10/28/18 17:47 10/28/18 21:09 Adrenalin Administered 10/28/18 17:48 Not Given Dose 1 mg .ROUTE .STK-MED ONE Epinephrine HCl Confirm 10/28/18 18:06 10/28/18 21:00 Adrenalin Administered 10/28/18 18:07 Not Given Dose 1 mg .ROUTE .STK-MED ONE Epinephrine HCl 0.3 mg 10/28/18 17:51 10/28/18 17:51 Adrenalin IM 10/28/18 17:52 0.3 mg ONETIME ONE Administration Epinephrine HCl 0.3 mg 10/28/18 18:08 10/28/18 21:04 Adrenalin IM 10/28/18 18:09 0.3 mg ONETIME ONE Administration Sodium Chloride 1,000 mls @ 999 mls/hr 10/28/18 18:15 10/28/18 21:07 Normal Saline IV 10/28/18 19:15 Infused .BOLUS ONE Infusion Sodium Chloride 1,000 mls @ 150 mls/hr 10/28/18 18:45 10/28/18 18:45 Normal Saline IV 150 mls/hr ASDIRECTED [place] Administration Famotidine 20 mg/ Premix 50 mls @ 200 mls/hr 10/28/18 18:04 10/28/18 18:04 IV 10/28/18 18:05 200 mls/hr ONETIME ONE Administration Methylprednisolone Sodium Succinate 125 mg 10/28/18 17:56 10/28/18 21:04 Solu-Medrol IVPUSH 10/28/18 17:57 125 mg ONETIME ONE Administration - Re-Assessments/Exams Free Text/Narrative Re-Assessment/Exam: 15 min later re-assess, still clear lung sounds, patient again reporting funny feeling in her throat coming back, will give second dose IM epinephrine Free Text/Narrative Re-Assessment/Exam: patient feeling better, EKG reviewed, will also get CXR. BP starting to improve - 103/40. HR in 50's. No fever. discussed history with patient, not much additional. Had felt pretty well since Saturday night, other than increased frequency of urination, which is normal for her. Denies fever, chest pain, shortness of breath, dizziness, sweating, nausea or vomiting over weekend. No diarrhea. labs reviewed - CBC and CRP within normal limits, no anemia, CMP shows slightly elevated creatinine at 1.7, baseline appears to be 0.9. re-evaluation - tongue swelling appears to be improving, lungs still clear, heart regular. Abdomen still minimal epigastric tenderness. Peripheral pulses easier now to palpate. Still no fever. discussed with patient and daughter admission to hospital, either locally or transfer to [place]. Initially patient desired to go home, she did not want another hospital stay. After very lengthy deliberation, patient would prefer to go to [facility]. Given her presentation I think there is good possibility she would need increased level of care overnight, including possible manager relationship care, which is not available here, and so I spoke with Dr. Diana of [place], who graciously accepted the patient for admission. working diagnosis at discharge - anaphylactic reaction, new medications today doxycycline, citalopram, and xanax, none of which the patient has taken previously. Departure - Departure Time of Disposition: 19:00 Disposition: DC/Tfer to Acute Hospital 02 Condition: Fair Clinical Impression: Anaphylaxis, Hypotension - Discharge Information *PRESCRIPTION DRUG MONITORING PROGRAM REVIEWED*: Not Applicable *COPY OF PRESCRIPTION DRUG MONITORING REPORT IN PATIENT PETER: Not Applicable Referrals: Peri Theodore ENVIRONMENTAL COMPLIANCE INSPECTOR [Primary Care Provider] - Forms: ED Department Discharge Additional Instructions: transfer to [facility], Dr Diana accepting - My Orders Last 24 Hours: My Active Orders 10/28/18 18:09 Chest 1V Frontal [CR] Stat - Assessment/Plan Last 24 Hours: My Active Orders 10/28/18 18:09 Chest 1V Frontal [CR] Stat
--- NOTE | 2018-10-29 10:38 | CR ---
INDICATION: Short of breath. CHEST: A single AP upright view of the chest was obtained 10/28/18 and compared with 10/25/18 and 08/28/17. The heart did not appear enlarged. Overlying EKG leads are noted. A definite active infiltrate or effusion was not identified. Evidence of exogenous obesity is noted. IMPRESSION: No acute process. MTDD
== END 2018-10-28 20:40 ==
LOC: FB.ED 17:34
DX: T88.6XXA Anaphylactic reaction due to adverse effect of correct drug or medicament properly administered, initial encounter (principal); T36.4X5A Adverse effect of tetracyclines, initial encounter; I95.9 Hypotension, unspecified; J44.9 Chronic obstructive pulmonary disease, unspecified; Z79.4 Long term (current) use of insulin; Z79.899 Other long term (current) drug therapy; Z88.0 Allergy status to penicillin; Z88.2 Allergy status to sulfonamides
CPT/HCPCS: 36415; 71045; 80053; 84484; 85025; 85610; 86140; 93005; 96365; 96366; 96372; 96375; 99285; J0171; J1200; J2930; J7030

== ENCOUNTER 2018-12-26 09:13 | Emergency (ER) | payer MEDICARE, BC ==
--- NOTE | 2018-12-26 09:34 | EDM.PDOC ---
ED HPI GENERAL MEDICAL PROBLEM - General Chief Complaint: Gastrointestinal Problem Stated Complaint: Weakness with diarrhea Time Seen by Provider: 12/26/18 09:28 Source of Information: Reports: Patient History Limitations: Reports: No Limitations - History of Present Illness INITIAL COMMENTS - FREE TEXT/NARRATIVE: 68-year-old female who reports that on 12/24/2018 she was feeling pretty well and mowed the grass urine the day and did we pulling all through the day and then that evening she felt tired and went to bed early and then awoke on 12/25/2018 at 6 AM with diarrhea and subjective fevers and chills. She does report that she did not really sleep well the night before. Through the day yesterday she had 15 -20 loose stools. There was no blood in the stools. She had no appetite and hasn 't really eaten anything for the past 24 hours but has been able to take liquids okay. She has had no dysuria or hematuria. She's had nausea but no vomiting. She does have some diffuse abdominal pain mostly centered in her periumbilical area that is an ache and cramping that she rates as a 4/10 at present. No cough. No difficulty breathing. She reports that she has slept most of the time. She feels somewhat weak and dizzy. There are no other associated signs or symptoms. There are no other modifying factors. Onset: Other (6 AM on 12/25/2018) Duration: Constant Location: Reports: Abdomen Quality: Reports: Ache, Other (Cramping) Severity: Moderate Improves with: Reports: None Worsens with: Reports: None Associated Symptoms: Reports: Fever/Chills, Nausea/Vomiting, Weakness Treatments [employer] INSPECTOR: Reports: Other (see below) (Nothing) - Related Data Allergies Allergy/AdvReac Type Severity Reaction Status Date / Time Penicillins Allergy Rash Verified 12/26/18 09:22 Sulfa (Sulfonamide Allergy Rash Verified 12/26/18 09:22 Antibiotics) Home Meds: Home Meds Insulin Degludec [Tresiba Flextouch U-200] 36 units SQ DAILY 02/28/17 [History] Nilotinib HCl [Tasigna] 400 mg PO BID 02/28/17 [History] .Ozempic 0.5 mg SQ Q7D 10/27/18 [History] Insulin Aspart [NovoLOG] 12 unit SQ TIDAC 10/27/18 [History] Levothyroxine 200 mcg PO DAILY 10/27/18 [History] Albuterol Sulfate [Albuterol Sulfate Hfa] 1 - 2 inh INH Q4H PRN 12/26/18 [ History] Aspirin 81 mg PO DAILY 12/26/18 [History] Citalopram Hydrobromide [Celexa] 40 mg PO DAILY 12/26/18 [History] Clopidogrel Bisulfate [Clopidogrel] 75 mg PO DAILY 12/26/18 [History] Famotidine 20 mg PO DAILY 12/26/18 [History] Ondansetron [Zofran ODT] 4 mg PO Q6H PRN #10 tab.dis 12/26/18 [Rx] Pregabalin [Lyrica] 200 mg PO TID 12/26/18 [History] Rosuvastatin [Crestor] 40 mg PO DAILY 12/26/18 [History] metFORMIN [Glucophage] 500 mg PO BID 12/26/18 [History] Past Medical History HEENT History: Reports: Impaired Vision Other HEENT History: wears glasses Cardiovascular History: Reports: High Cholesterol, Hypertension, Stents ( Secondary to peripheral vascular disease with a stent in her right lower extremity.) Respiratory History: Reports: COPD, Pneumonia, Recurrent Gastrointestinal History: Reports: GERD Psychiatric History: Reports: Anxiety, Depression, Panic Attack Endocrine/Metabolic History: Reports: Diabetes, Type II, Hypothyroidism, Obesity /BMI 30+ Hematologic History: Reports: Anticoagulation Therapy (On Plavix) Oncologic (Cancer) History: Reports: Cervix, Leukemia, Other (See Below) Other Oncologic History: CML. - Infectious Disease History Infectious Disease History: Reports: Chicken Pox - Past Surgical History Cardiovascular Surgical History: Reports: Percutaneous Transluminal Angioplasty (With stent in right lower extremity) GI Surgical History: Reports: Appendectomy, Cholecystectomy Female Surgical History: Reports: Other (See Below) Other Female Surgeries/Procedures: Ovarian cyst. Cervical cancer. Social & Family History - Family History Family Medical History: Noncontributory - Tobacco Use Smoking Status *Q: Former Smoker (Quit 1 year ago.) - Caffeine Use Caffeine Use: Reports: Coffee, Soda - Alcohol Use Alcohol Use History: Yes Alcohol Use Frequency: Rarely - Living Situation & Occupation Living situation: Reports: Occupation: Retired ED [employer] [employer] [employer] GENERAL - Review of Systems Review Of Systems: See Below Constitutional: Reports: Fever (Subjective), Chills, Weakness, Decreased Appetite HEENT: Reports: Other (Dry mouth) Respiratory: Reports: No Symptoms Cardiovascular: Reports: No Symptoms Endocrine: Reports: No Symptoms GI/Abdominal: Reports: Abdominal Pain, Diarrhea, Nausea : Reports: No Symptoms Musculoskeletal: Reports: No Symptoms Skin: Reports: No Symptoms Neurological: Reports: No Symptoms Psychiatric: Reports: No Symptoms Hematologic/Lymphatic: Reports: No Symptoms Immunologic: Reports: No Symptoms ED EXAM, GENERAL - Physical Exam Exam: See Below Exam Limited By: No Limitations General Appearance: Alert, Mild Distress, Obese Eye Exam: Bilateral Eye: EOMI, Normal Inspection, PERRL Ears: Normal External Exam, Hearing Grossly Normal Ear Exam: Bilateral Ear: Auricle Normal Nose: Normal Inspection, Normal Mucosa, No Blood Throat/Mouth: Normal Voice, No Airway Compromise, Other (Dry mucous membranes) Head: Atraumatic, Normocephalic Neck: Normal Inspection, Supple, Non-Tender, Full Range of Motion Respiratory/Chest: No Respiratory Distress, Lungs Clear, Normal Breath Sounds, No Accessory Muscle Use, Chest Non-Tender Cardiovascular: Normal Peripheral Pulses, Regular Rate, Rhythm, No Edema, No JVD Peripheral Pulses: 2+: Radial (L), Radial (R), Dorsalis Pedis (L), Dorsalis Pedis (R) GI/Abdominal: Normal Bowel Sounds, Soft, No Mass, Tender (Mildly tender in the periumbilical area), Other (Protuberant) Back Exam: Normal Inspection, Full Range of Motion Skin Exam: Warm, Dry, Intact, Normal Color, No Rash Lymphatic: No Adenopathy Course - Vital Signs Last Recorded V/S: Last Vital Signs Temp 36.7 C 12/26/18 10:52 Pulse 60 12/26/18 10:52 Resp 18 12/26/18 10:52 BP 126/61 12/26/18 10:52 Pulse Ox 98 12/26/18 10:52 - Orders/Labs/Meds Orders: Active Orders 24 hr Category Date Time Status Accu Check [Blood Glucose Check, Bedside] [RC] ONETIME Care 12/26/18 09:20 Active Nothing Per Oral Diet [DIET] Diet 12/26/18 Lunch Ordered C DIFFICILE, CYTOTOXIN B Urgent Lab 12/26/18 09:49 Ordered Sodium Chloride 0.9% [Normal Saline] 1,000 ml Med 12/26/18 10:00 Active IV ASDIRECTED Sodium Chloride 0.9% [Saline Flush] Med 12/26/18 09:49 Active 10 ml FLUSH ASDIRECTED PRN Peripheral IV Insertion Adult [OM.PC] Routine Oth 12/26/18 09:49 Ordered Medication Orders Sodium Chloride (Normal Saline) 1,000 mls @ 999 mls/hr IV ASDIRECTED RYLAND Last Infusion: 12/26/18 12:18 Dose: 999 mls/hr Admin: 12/26/18 11:33 Dose: 150 mls/hr Sodium Chloride (Saline Flush) 10 ml FLUSH ASDIRECTED PRN PRN Reason: Keep Vein Open Labs: Laboratory Tests 12/26/18 12/26/18 12/26/18 Range/Units 10:00 10:00 10:00 WBC 9.2 (4.5-12.0) X10-3/uL RBC 4.87 (3.23-5.20) x10(6)uL Hgb 13.7 (11.5-15.5) g/dL Hct 40.8 (30.0-51.3) % MCV 83.9 (80-96) fL MCH 28.1 (27.7-33.6) pg MCHC 33.5 (32.2-35.4) g/dL RDW 14.1 (11.5-15.5) % Plt Count 218 (125-369) X10(3)uL MPV 9.3 (7.4-10.4) fL Neut % (Auto) 81.1 (46-82) % Lymph % (Auto) 12.3 L (13-37) % Davie % (Auto) 4.7 (4-12) % Eos % (Auto) 1 (1.0-5.0) % Baso % (Auto) 1 (0-2) % Neut # (Auto) 7.5 (1.6-8.3) # Lymph # (Auto) 1.1 (0.6-5.0) # Davie # (Auto) 0.4 (0.0-1.3) # Eos # (Auto) 0.1 (0.0-0.8) # Baso # (Auto) 0.1 (0.0-0.2) # PT (8.7-11.1) INR (0.89-1.13) Sodium 141 (135-145) mmol/L Potassium 3.8 (3.5-5.3) mmol/L Chloride 106 (100-110) mmol/L Carbon Dioxide 22 (21-32) mmol/L BUN 15 D (7-18) mg/dL Creatinine 0.8 (0.55-1.02) mg/dL Est Cr Clr Drug Dosing 63.63 mL/min Estimated GFR (MDRD) > 60 (>60) BUN/Creatinine Ratio 18.8 (9-20) Glucose 155 H (80-116) mg/dL Lactic Acid (0.4-2.2) mmol/L Calcium 9.4 (8.6-10.2) mg/dL Magnesium (1.8-2.5) mg/dL Total Bilirubin 0.8 (0.1-1.3) mg/dL AST 16 D (5-25) IU/L ALT 33 D (12-36) U/L Alkaline Phosphatase 114 H (56-112) IU/L C-Reactive Protein < 0.2 L (0.5-0.9) mg/dL Total Protein 8.3 H (6.0-8.0) g/dL Albumin 3.9 (3.2-4.6) g/dL Globulin 4.4 g/dL Albumin/Globulin Ratio 0.9 Amylase 50 (25-115) U/L Urine Color (YELLOW) Urine Appearance (CLEAR) Urine pH (5.0-6.5) Ur Specific [place] (1.010-1.025) Urine Protein (NEGATIVE) mg/dL Urine Glucose (UA) (NORMAL) mg/dL Urine Ketones (NEGATIVE) mg/dL Urine Occult Blood (NEGATIVE) Urine Nitrite (NEGATIVE) Urine Bilirubin (NEGATIVE) Urine Urobilinogen (NEGATIVE) mg/dL Ur Leukocyte Esterase (NEGATIVE) Urine RBC (0-5) Urine WBC (0-5) Ur Squamous Epith Cells (NS,R,O) Urine Bacteria (NS) 12/26/18 12/26/18 12/26/18 Range/Units 10:00 10:00 10:00 WBC (4.5-12.0) X10-3/uL RBC (3.23-5.20) x10(6)uL Hgb (11.5-15.5) g/dL Hct (30.0-51.3) % MCV (80-96) fL MCH (27.7-33.6) pg MCHC (32.2-35.4) g/dL RDW (11.5-15.5) % Plt Count (125-369) X10(3)uL MPV (7.4-10.4) fL Neut % (Auto) (46-82) % Lymph % (Auto) (13-37) % Davie % (Auto) (4-12) % Eos % (Auto) (1.0-5.0) % Baso % (Auto) (0-2) % Neut # (Auto) (1.6-8.3) # Lymph # (Auto) (0.6-5.0) # Davie # (Auto) (0.0-1.3) # Eos # (Auto) (0.0-0.8) # Baso # (Auto) (0.0-0.2) # PT 9.9 (8.7-11.1) INR 1.02 (0.89-1.13) Sodium (135-145) mmol/L Potassium (3.5-5.3) mmol/L Chloride (100-110) mmol/L Carbon Dioxide (21-32) mmol/L BUN (7-18) mg/dL Creatinine (0.55-1.02) mg/dL Est Cr Clr Drug Dosing mL/min Estimated GFR (MDRD) (>60) BUN/Creatinine Ratio (9-20) Glucose (80-116) mg/dL Lactic Acid 2.0 (0.4-2.2) mmol/L Calcium (8.6-10.2) mg/dL Magnesium 1.8 (1.8-2.5) mg/dL Total Bilirubin (0.1-1.3) mg/dL AST (5-25) IU/L ALT (12-36) U/L Alkaline Phosphatase (56-112) IU/L C-Reactive Protein (0.5-0.9) mg/dL Total Protein (6.0-8.0) g/dL Albumin (3.2-4.6) g/dL Globulin g/dL Albumin/Globulin Ratio Amylase (25-115) U/L Urine Color (YELLOW) Urine Appearance (CLEAR) Urine pH (5.0-6.5) Ur Specific [place] (1.010-1.025) Urine Protein (NEGATIVE) mg/dL Urine Glucose (UA) (NORMAL) mg/dL Urine Ketones (NEGATIVE) mg/dL Urine Occult Blood (NEGATIVE) Urine Nitrite (NEGATIVE) Urine Bilirubin (NEGATIVE) Urine Urobilinogen (NEGATIVE) mg/dL Ur Leukocyte Esterase (NEGATIVE) Urine RBC (0-5) Urine WBC (0-5) Ur Squamous Epith Cells (NS,R,O) Urine Bacteria (NS) 12/26/18 Range/Units 13:00 WBC (4.5-12.0) X10-3/uL RBC (3.23-5.20) x10(6)uL Hgb (11.5-15.5) g/dL Hct (30.0-51.3) % MCV (80-96) fL MCH (27.7-33.6) pg MCHC (32.2-35.4) g/dL RDW (11.5-15.5) % Plt Count (125-369) X10(3)uL MPV (7.4-10.4) fL Neut % (Auto) (46-82) % Lymph % (Auto) (13-37) % Davie % (Auto) (4-12) % Eos % (Auto) (1.0-5.0) % Baso % (Auto) (0-2) % Neut # (Auto) (1.6-8.3) # Lymph # (Auto) (0.6-5.0) # Davie # (Auto) (0.0-1.3) # Eos # (Auto) (0.0-0.8) # Baso # (Auto) (0.0-0.2) # PT (8.7-11.1) INR (0.89-1.13) Sodium (135-145) mmol/L Potassium (3.5-5.3) mmol/L Chloride (100-110) mmol/L Carbon Dioxide (21-32) mmol/L BUN (7-18) mg/dL Creatinine (0.55-1.02) mg/dL Est Cr Clr Drug Dosing mL/min Estimated GFR (MDRD) (>60) BUN/Creatinine Ratio (9-20) Glucose (80-116) mg/dL Lactic Acid (0.4-2.2) mmol/L Calcium (8.6-10.2) mg/dL Magnesium (1.8-2.5) mg/dL Total Bilirubin (0.1-1.3) mg/dL AST (5-25) IU/L ALT (12-36) U/L Alkaline Phosphatase (56-112) IU/L C-Reactive Protein (0.5-0.9) mg/dL Total Protein (6.0-8.0) g/dL Albumin (3.2-4.6) g/dL Globulin g/dL Albumin/Globulin Ratio Amylase (25-115) U/L Urine Color Yellow (YELLOW) Urine Appearance Clear (CLEAR) Urine pH 6.0 (5.0-6.5) Ur Specific [place] 1.010 (1.010-1.025) Urine Protein Negative (NEGATIVE) mg/dL Urine Glucose (UA) Normal (NORMAL) mg/dL Urine Ketones 15 H (NEGATIVE) mg/dL Urine Occult Blood Trace H (NEGATIVE) Urine Nitrite Negative (NEGATIVE) Urine Bilirubin Small H (NEGATIVE) Urine Urobilinogen 2.0 (NEGATIVE) mg/dL Ur Leukocyte Esterase Moderate (NEGATIVE) Urine RBC 0-5 (0-5) Urine WBC 10-20 H (0-5) Ur Squamous Epith Cells Moderate H (NS,R,O) Urine Bacteria Moderate H (NS) Meds: Medications Generic Name Dose Route Start Last Admin Trade Name Freq PRN Reason Stop Dose Admin Sodium Chloride 1,000 mls @ 999 mls/hr 12/26/18 10:00 12/26/18 12:18 Normal Saline IV 999 mls/hr ASDIRECTED RYLAND Infusion Sodium Chloride 10 ml 12/26/18 09:49 Saline Flush FLUSH ASDIRECTED PRN Keep Vein Open Discontinued Medications Generic Name Dose Route Start Last Admin Trade Name Freq PRN Reason Stop Dose Admin Sodium Chloride 1,000 mls @ 999 mls/hr 12/26/18 09:52 12/26/18 10:16 Normal Saline IV 12/26/18 10:52 999 mls/hr .BOLUS ONE Administration Iopamidol 100 ml 12/26/18 11:11 12/26/18 11:27 Isovue-370 (76%) IV 12/26/18 11:12 91 ml ONETIME ONE Administration Ondansetron HCl 4 mg 12/26/18 09:52 12/26/18 10:23 Zofran IVPUSH 12/26/18 09:53 4 mg ONETIME ONE Administration - Radiology Interpretation Free Text/Narrative:: CT scan of abdomen and pelvis showed a few fluid-filled loops of small bowel that the radiologist felt could be related to gastroenteritis. There was no definite evidence of obstruction. There were multiple diverticula but no diverticulitis. There were no other acute abnormalities per Dr. Monroy. - Re-Assessments/Exams Free Text/Narrative Re-Assessment/Exam: 12/26/18 12:00: Patient's blood tests were reassuringly normal. Patient has received 1 L of normal saline as a bolus and is getting additional normal saline IV. After the IV Zofran and IV fluids, the patient feels much improved. Her abdomen is soft and essentially nontender. The CT scan of the patient's abdomen and pelvis showed no QT process except gastroenteritis per the radiologist. She still does not feel that she needs to urinate. I will give the patient an additional 1 L bolus of normal saline. 12/26/18 13:44: She feels much improved now. Her urine showed a contaminated specimen and with her lack of symptoms I do not feel that she has a urinary tract infection. With her history of fairly heavy yard work yesterday, this could be related to some heat exhaustion and dehydration which has improved with rehydration. I am going to have her avoid heat exposure and to increase her fluid intake over the next few days. I have given her a prescription of Zofran for any nausea that she may have. Departure - Departure Time of Disposition: 13:50 Disposition: Home, Self-Care 01 Condition: Good (Improved) Clinical Impression: Dehydration Diarrhea Qualifiers: Diarrhea type: unspecified type Qualified Code(s): R19.7 - Diarrhea, unspecified Heat exhaustion Qualifiers: Encounter type: initial encounter Qualified Code(s): T67.5XXA - Heat exhaustion , unspecified, initial encounter - Discharge Information Prescriptions: Ondansetron [Zofran ODT] 4 mg PO Q6H PRN #10 tab.dis PRN Reason: Nausea/Vomiting Instructions: Heat Exhaustion Information, Dehydration, Adult, [id number], Diarrhea, Adult, [id number]-[id number] Referrals: Dylan Walsh MD [Primary Care Provider] - Forms: ED Department Discharge Additional Instructions: No metformin for 48 hours due to IV contrast dye with your CT scan. Monitor your blood sugars more closely. Your blood tests were reassuringly normal. Your urine test showed no evidence of infection. The CT scan of your abdomen and pelvis showed no significant problem. As we discussed, I feel it is likely that there was a component of heat exhaustion that caused your symptoms. You should avoid heat exposure for the next 2 days and be careful with the exposure in the future. You should increase your fluid intake and rest. Medication as prescribed (Zofran 4 mg ODT). Follow-up with your primary doctor as needed. Back to the emergency department for worsening abdominal pain, unrelenting vomiting, high fever or any other concerning sign or symptom. - My Orders Last 24 Hours: My Active Orders 12/26/18 09:20 Accu Check [Blood Glucose Check, Bedside] [RC] ONETIME 12/26/18 09:49 C DIFFICILE, CYTOTOXIN B Urgent Sodium Chloride 0.9% [Saline Flush] 10 ml FLUSH ASDIRECTED PRN Peripheral IV Insertion Adult [OM.PC] Routine 12/26/18 10:00 Sodium Chloride 0.9% [Normal Saline] 1,000 ml IV ASDIRECTED 12/26/18 Lunch Nothing Per Oral Diet [DIET] - Assessment/Plan Last 24 Hours: My Active Orders 12/26/18 09:20 Accu Check [Blood Glucose Check, Bedside] [RC] ONETIME 12/26/18 09:49 C DIFFICILE, CYTOTOXIN B Urgent Sodium Chloride 0.9% [Saline Flush] 10 ml FLUSH ASDIRECTED PRN Peripheral IV Insertion Adult [OM.PC] Routine 12/26/18 10:00 Sodium Chloride 0.9% [Normal Saline] 1,000 ml IV ASDIRECTED 12/26/18 Lunch Nothing Per Oral Diet [DIET]
[2018-12-26] MEDS ORDERED: Sodium Chloride 0.9% 10 ML Syringe FLUSH PRN (09:49)
[2018-12-26] MEDS ORDERED: Sodium Chloride 0.9% 1,000 ML IV ONE (09:52)
[2018-12-26] MEDS ORDERED: Ondansetron 4 MG/2 ML SDV IVPUSH ONE (09:52)
[2018-12-26] MEDS ORDERED: Sodium Chloride 0.9% 1,000 ML IV SCH (10:00)
[2018-12-26] MEDS ORDERED: Iopamidol 755 Mg/ML 100 ML Bottle IV ONE (11:11)
--- NOTE | 2018-12-26 13:15 | CT ---
INDICATION: Abdominal pain with diarrhea, fever and chills, right lower quadrant pain times [address] ABDOMEN AND PELVIS WITH CONTRAST: Spiral 3.75 mm axial sections were obtained through the abdomen and pelvis with 91 mL Isovue 370 at 2 mL/second with 100 second delay, 12/26/18, and compared with 10/20/18. Total exam DLP = 2 ,041.04 mGy-cm. There is again noted occlusion of the right internal iliac artery with reconstitution distally via collaterals. Atherosclerotic changes are noted in the aorta, iliac and femoral arteries, as well as the right renal artery. No aneurysmal dilatation was seen. Degenerative changes and disk disease are again noted in the lumbar spine at levels L2-3, L3-4, and to a lesser extent L4-5 with hypertrophic spurring off vertebral bodies L1-L5 anteriorly. A mild dextroconvex scoliosis is now seen in the mid lumbar area. There are again noted what appear to be multicystic changes in the kidneys. No solid masses were suggested. No obstructive uropathy was identified. There is again noted a large calcification in the cortex extending into the medullary portion posteriorly of the left kidney upper middle pole area, likely representing an area of scarring from either previous infarct or infection. The gallbladder is absent, compatible with history of its removal. The liver, spleen, pancreas, and right adrenal gland appeared normal. The left adrenal gland has a somewhat nodular appearance, which appears unchanged from the previous study. The largest of these nodules was more superior and measured approximately 17 mm and also measured 17 mm on the previous study. More inferior nodule also appeared stable and smaller in size. No other retroperitoneal masses were identified. No intrahepatic ductal dilatation was seen. Common bile duct was normal in caliber. Gastric wall appears to be normal in thickness. The appendix is absent, compatible with history of its removal. No evidence of free air or definite bowel obstruction was identified. There are some fluid-filled loops of small bowel, which are minimally prominent and of questionable significance that could be related to fluid intake or possibly a process such as gastroenteritis and should be correlated clinically. Sigmoid diverticulosis is noted without evidence of diverticulitis. Urinary bladder appeared to be unremarkable. No definite ventral hernia is seen. There are some minimal fibrotic appearing strands at both lung bases, particularly on the right without a definite active infiltrate or effusion identified. The heart is enlarged. No pericardial effusion is seen. The heart may be increased in size, compared with the previous study to a mild degree. IMPRESSION: 1. Loops of small bowel filled with fluid and mildly dilated in the mid upper pelvis could be related to gastroenteritis and also could be incidental. An early or partial small bowel obstruction is felt to be less likely. No free air was seen. 2. 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 3. Sigmoid diverticulosis without evidence of diverticulitis. 4. Post cholecystectomy. 5. Post appendectomy. 6. Degenerative changes and disk disease lumbar spine. 7. Multicystic changes in the kidneys similar to the previous study with a large calcification in the left kidney, unchanged from the previous study, compatible with a scar. 8. Minimal fibrotic appearing changes at the lung bases, especially on the right. 9. Stable nodularity at the left adrenal gland on CTs back to 08/28/17 with one new nodule compared with previous CT of the chest from 11/29/08. Likely these represent benign lesions. Followup CT through the adrenals only in one year without contrast initially may be helpful for confirmation of stability. Report was called to Dr. Lizarraga at 1209 hours on 12/26/18. KARELYD
== END 2018-12-26 14:05 | disposition home or self-care (01) ==
LOC: FB.ED 09:13
DX: T67.5XXA Heat exhaustion, unspecified, initial encounter (principal); E86.0 Dehydration; E11.9 Type 2 diabetes mellitus without complications; I10 Essential (primary) hypertension; K21.9 Gastro-esophageal reflux disease without esophagitis; J44.9 Chronic obstructive pulmonary disease, unspecified; E03.9 Hypothyroidism, unspecified; F32.9 Major depressive disorder, single episode, unspecified; F41.0 Panic disorder [episodic paroxysmal anxiety]; E78.00 Pure hypercholesterolemia, unspecified; E66.9 Obesity, unspecified; Z68.36 Body mass index [BMI] 36.0-36.9, adult; Z88.0 Allergy status to penicillin; Z88.2 Allergy status to sulfonamides; Z87.891 Personal history of nicotine dependence; Z79.4 Long term (current) use of insulin; Z79.890 Hormone replacement therapy; Z79.82 Long term (current) use of aspirin; Z79.899 Other long term (current) drug therapy; Z79.02 Long term (current) use of antithrombotics/antiplatelets; Z79.1 Long term (current) use of non-steroidal anti-inflammatories (NSAID); Z79.83 Long term (current) use of bisphosphonates; Z79.01 Long term (current) use of anticoagulants
CPT/HCPCS: 36415; 74177; 80053; 81001; 82150; 82962; 83605; 83735; 85025; 85610; 86140; 96361; 96374; 99284; J2405; J7030; Q9967

== ENCOUNTER 2019-12-29 06:39 | Day surgery (SDC) | payer MEDICARE, BC ==
[2019-12-29] MEDS ORDERED: Midazolam 1 MG/ML 2 ML SDV IV ONE (06:40)
[2019-12-29] MEDS ORDERED: Sodium Chloride 0.9% 10 ML Syringe FLUSH PRN (06:45)
[2019-12-29] MEDS: Lactated Ringers 1,000 ML IV SCH (07:35)
[2019-12-29] MEDS ORDERED: acetaZOLAMIDE 500 MG Cap.ER PO ONE (08:10)
--- NOTE | 2019-12-30 11:25 | OR ---
DATE OF OPERATION: 12/29/2019 SURGEON: Darby Nolan MD PREOPERATIVE DIAGNOSIS: Visually significant cataract, left eye. POSTOPERATIVE DIAGNOSIS: Visually significant cataract, left eye. PROCEDURES PERFORMED: Phacoemulsification with intraocular lens placement, left eye. ASSISTANTS: None. ANESTHESIA: Local with sedation. COMPLICATIONS: None. BLOOD LOSS: None. IMPLANTS: Benton ACU0T0, 25.0 diopter lens implanted. CDE: 1.78. DESCRIPTION OF PROCEDURE: After risks and benefits were reviewed with the patient, consent was obtained in the preoperative area, and the operative eye was marked with a surgical pen. In the preoperative area, a pledget was used to dilate the pupil consisting of a mixture of phenylephrine 10%, cyclopentolate 2%, moxifloxacin 0.5%, and bupivacaine 0.75%. The patient was taken to the operating room, where a time-out was performed, and the patient was placed under monitored anesthesia care. Topical tetracaine was used for anesthesia. The operative eye was prepped and draped for ophthalmic surgery, and the microscope was brought into position and focused. A paracentesis incision was made, followed by injection of preservative-free 1% lidocaine into the anterior chamber, followed by injection of Viscoat into the anterior chamber. A microkeratome blade was used to make a corneal limbal incision temporally. A cystotome was used to make the beginning of the capsulorrhexis, which was carried around 360 degrees in a curvilinear fashion using Utrata forceps. A Cazares cannula with BSS was used to hydrodissect and hydrodelineate the nucleus. The nucleus was removed in a divide and conquer manner using phacoemulsification. Irrigation and aspiration were used to remove the remaining cortical material. Provisc was used to inflate the capsular bag, and a pre-loaded Benton ACU0T0, 25.0 diopter lens, serial number [id number] was injected into the capsular bag. A Sinskey hook was used to position and center the lens. Next, irrigation and aspiration was used to remove any remaining viscoelastic and cortical material from the anterior chamber. BSS on a cannula was used to inflate the anterior chamber and hydrate the wound. The wound was checked and found to be watertight. 1 mg of Moxifloxacin was injected into the anterior chamber. Drapes were removed and the eye was cleaned. A drop of brimonidine 0.15% and a drop of TobraDex was placed. The eye was shielded, and the patient was taken to the recovery room in stable condition. /[id number] BREE/VERONICA CC: TAO VAZQUEZ MD MTDD
== END 2019-12-29 09:30 | disposition home or self-care (01) ==
LOC: FB.SDS 06:39
PROVIDERS: ATTEND Ophthalmology
DX: E11.36 Type 2 diabetes mellitus with diabetic cataract (principal); H25.13 Age-related nuclear cataract, bilateral; H35.363 Drusen (degenerative) of macula, bilateral; H52.03 Hypermetropia, bilateral; E78.00 Pure hypercholesterolemia, unspecified; E03.9 Hypothyroidism, unspecified; K21.9 Gastro-esophageal reflux disease without esophagitis; F41.1 Generalized anxiety disorder; F33.41 Major depressive disorder, recurrent, in partial remission; E11.42 Type 2 diabetes mellitus with diabetic polyneuropathy; E11.51 Type 2 diabetes mellitus with diabetic peripheral angiopathy without gangrene; I72.2 Aneurysm of renal artery; E66.01 Morbid (severe) obesity due to excess calories; C92.10 Chronic myeloid leukemia, BCR/ABL-positive, not having achieved remission; J44.9 Chronic obstructive pulmonary disease, unspecified; Z87.891 Personal history of nicotine dependence; Z79.82 Long term (current) use of aspirin; Z79.899 Other long term (current) drug therapy; Z79.4 Long term (current) use of insulin; Z68.41 Body mass index [BMI] 40.0-44.9, adult
CPT/HCPCS: 00142-QZ; 82962; J2250; J7120; V2632

== ENCOUNTER 2020-01-26 06:47 | Day surgery (SDC) | payer MEDICARE, BC ==
[~2020-01-26 06:47] MED LIST: Lactated Ringers 1,000 ML IV SCH; Sodium Chloride 0.9% 10 ML Syringe FLUSH PRN
[2020-01-26] MEDS ORDERED: Midazolam 1 MG/ML 2 ML SDV IV ONE (06:48)
[2020-01-26] MEDS ORDERED: acetaZOLAMIDE 500 MG Cap.ER PO ONE (08:30)
--- NOTE | 2020-01-27 14:02 | OR ---
DATE OF OPERATION: 01/26/2020 SURGEON: Darby Nolan MD PREOPERATIVE DIAGNOSIS: Visually significant cataract, right eye. POSTOPERATIVE DIAGNOSIS: Visually significant cataract, right eye. PROCEDURES PERFORMED: Phacoemulsification with intraocular lens placement, right eye. ASSISTANTS: None. ANESTHESIA: Local with sedation. COMPLICATIONS: None. BLOOD LOSS: None. IMPLANTS: Benton [id number], 23.0 diopter lens, serial #[id number] implanted. CDE: 2.31. DESCRIPTION OF PROCEDURE: After risks and benefits were reviewed with the patient, consent was obtained in the preoperative area, and the operative eye was marked with a surgical pen. In the preoperative area, a pledget was used to dilate the pupil consisting of a mixture of phenylephrine 10%, cyclopentolate 2%, moxifloxacin 0.5%, and bupivacaine 0.75%. The patient was taken to the operating room, where a time-out was performed, and the patient was placed under monitored anesthesia care. Topical tetracaine was used for anesthesia. The operative eye was prepped and draped for ophthalmic surgery, and the microscope was brought into position and focused. A paracentesis incision was made, followed by injection of preservative-free 1% lidocaine into the anterior chamber, followed by injection of Viscoat into the anterior chamber. A microkeratome blade was used to make a corneal limbal incision temporally. A cystotome was used to make the beginning of the capsulorrhexis, which was carried around 360 degrees in a curvilinear fashion using Utrata forceps. A Cazares cannula with BSS was used to hydrodissect and hydrodelineate the nucleus. The nucleus was removed in a divide and conquer manner using phacoemulsification. Irrigation and aspiration were used to remove the remaining cortical material. Provisc was used to inflate the capsular bag, and a pre-loaded 23.0 diopter lens, serial number [id number] was injected into the capsular bag. A Sinskey hook was used to position and center the lens. Next, irrigation and aspiration was used to remove any remaining viscoelastic and cortical material from the anterior chamber. BSS on a cannula was used to inflate the anterior chamber and hydrate the wound. The wound was checked and found to be watertight. 1 mg of Moxifloxacin was injected into the anterior chamber. Drapes were removed and the eye was cleaned. A drop of brimonidine 0.15% and a drop of TobraDex was placed. The eye was shielded, and the patient was taken to the recovery room in stable condition. CC: Lelia Cunningham NP CC: Randy Crowe OD CC: Darby Nolan MD /[id number] [place]/POLIL
== END 2020-01-26 08:55 | disposition home or self-care (01) ==
LOC: FB.SDS 06:47
PROVIDERS: ATTEND Ophthalmology
DX: E11.36 Type 2 diabetes mellitus with diabetic cataract (principal); H25.13 Age-related nuclear cataract, bilateral; H35.363 Drusen (degenerative) of macula, bilateral; H52.03 Hypermetropia, bilateral; J44.9 Chronic obstructive pulmonary disease, unspecified; C92.10 Chronic myeloid leukemia, BCR/ABL-positive, not having achieved remission; E11.51 Type 2 diabetes mellitus with diabetic peripheral angiopathy without gangrene; E66.01 Morbid (severe) obesity due to excess calories; I72.2 Aneurysm of renal artery; E11.42 Type 2 diabetes mellitus with diabetic polyneuropathy; E03.9 Hypothyroidism, unspecified; K21.9 Gastro-esophageal reflux disease without esophagitis; F41.1 Generalized anxiety disorder; F33.41 Major depressive disorder, recurrent, in partial remission; Z79.82 Long term (current) use of aspirin; Z79.899 Other long term (current) drug therapy; Z87.891 Personal history of nicotine dependence
CPT/HCPCS: 00142-QZ; 82962; A9270-GY; J2250; J7120; V2632

== ENCOUNTER 2020-03-31 12:45 | Emergency (ER) | payer MEDICARE, BC ==
--- NOTE | 2020-03-31 13:46 | EDM.PDOC ---
ED HPI GENERAL MEDICAL PROBLEM - General Chief Complaint: Respiratory Problem Stated Complaint: COVID SYMPTOMS WORRY Time Seen by Provider: 03/31/20 13:45 Source of Information: Reports: Patient, Old Records History Limitations: Reports: No Limitations - History of Present Illness INITIAL COMMENTS - FREE TEXT/NARRATIVE: Kathy comes into [facility] ED with a 3 day hx of fatigue and malaise that has escalated to progressive SOB since last pm. There is no known exposure, fever, chills, sweats, cough, wheezing, chest pain or palpitations. She had similar sxs during October 2018 at this ED. She has had cardiology work up in the past, results negative. There is PMH of DVT, currently on anticoagulants. - Related Data Allergies Allergy/AdvReac Type Severity Reaction Status Date / Time doxycycline Allergy Difficulty Verified 03/31/20 14:27 Breathing metformin Allergy Other Verified 03/31/20 14:27 Penicillins Allergy Rash Verified 03/31/20 14:27 Sulfa (Sulfonamide Allergy Rash Verified 03/31/20 14:27 Antibiotics) Home Meds: Home Meds Insulin Degludec [Tresiba Flextouch U-200] 48 units SQ DAILY 02/28/17 [History] Nilotinib HCl [Tasigna] 400 mg PO BID 02/28/17 [History] .Ozempic 0.5 mg SQ Q7D 10/27/18 [History] Insulin Aspart [NovoLOG] 15 unit SQ TIDAC 10/27/18 [History] Levothyroxine 200 mcg PO DAILY 10/27/18 [History] Albuterol Sulfate [Albuterol Sulfate Hfa] 1 - 2 inh INH Q4H PRN 12/26/18 [History] Aspirin 81 mg PO DAILY 12/26/18 [History] Citalopram Hydrobromide [Celexa] 40 mg PO DAILY 12/26/18 [History] Clopidogrel Bisulfate [Clopidogrel] 75 mg PO DAILY 12/26/18 [History] Famotidine 20 mg PO DAILY 12/26/18 [History] Pregabalin [Lyrica] 200 mg PO TID 12/26/18 [History] Rosuvastatin [Crestor] 40 mg PO DAILY 12/26/18 [History] ALPRAZolam [Xanax] 0.25 mg PO DAILY PRN 12/24/19 [History] Mirtazapine 30 mg PO BEDTIME 12/24/19 [History] buPROPion HCL [Bupropion Xl] 150 mg PO DAILY 12/24/19 [History] Past Medical History HEENT History: Reports: Hard of Hearing, Impaired Vision Other HEENT History: wears glasses; ESOPHAGEAL REFLUX; SENSORINEURAL HEARING LOSS OF BOTH EARS; DYSFUNCTION OF BOTH EUSTACHIAN TUBES; PHARYNGOESOPHAGEAL DYSPHAGIA; DYSPHONIA Cardiovascular History: Reports: High Cholesterol, Hypertension, PVD, Stents Other Cardiovascular History: Hx DVT right leg, has stent and ballon placed, takes anticoagulants. PAD. 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 Cervical cancer. Social & Family History - Family History Family Medical History: No Pertinent Family History - Caffeine Use Caffeine Use: Reports: Coffee - Living Situation & Occupation Living situation: Reports: Occupation: Retired ED ROS GENERAL - Review of Systems Review Of Systems: Comprehensive ROS is negative, except as noted in HPI. ED EXAM, GENERAL - Physical Exam Exam: See Below Exam Limited By: No Limitations General Appearance: Alert, WD/WN, No Apparent Distress, Anxious Eye Exam: Bilateral Eye: EOMI, Normal Inspection, PERRL Ears: Normal External Exam Nose: Normal Inspection Throat/Mouth: Normal Inspection Head: Normocephalic Neck: Normal Inspection Respiratory/Chest: No Respiratory Distress, No Accessory Muscle Use, Chest Non- Tender, Decreased Breath Sounds, Prolonged Expiration Cardiovascular: Regular Rate, Rhythm, No Murmur GI/Abdominal: Soft, Non-Tender, No Organomegaly, No Distention, No Mass (Female) Exam: Deferred Rectal (Female) Exam: Deferred Back Exam: Normal Inspection Extremities: Normal Inspection Neurological: Alert, Oriented, CN II-XII Intact, Normal Cognition, No Motor/Sensory Deficits Psychiatric: Normal Affect, Anxious Skin Exam: Warm, Dry, Intact, Normal Color Lymphatic: No Adenopathy Course - Vital Signs Text/Narrative:: Following assessment at the ED, screening labs were obtained including Covid 19: POS. The chest x ray notes some stringy atelectasis in the R lower lung of unknown signficance. She stopped smoking 3 years ago. The ekg noted NSR without acute changes. Ativan 1 mg IM was administered for anxiety with good effect. Last Recorded V/S: Last Vital Signs Temp 36.6 C 03/31/20 12:45 Pulse 99 03/31/20 12:45 Resp 18 03/31/20 12:45 BP 112/73 03/31/20 12:45 Pulse Ox 100 03/31/20 12:45 - Orders/Labs/Meds Orders: Active Orders 24 hr Category Date Time Status EKG Documentation Completion [RC] ASDIRECTED Care 03/31/20 13:27 Active Chest 1V Frontal [CR] Stat Exams 03/31/20 13:25 Taken URINALYSIS W/MICROSCOPIC [UA W/MICROSCOPIC] [URIN] Stat Lab 03/31/20 13:25 Ordered EKG 12 Lead [EK] Routine Ther 03/31/20 13:25 Ordered Labs: Laboratory Tests 03/31/20 03/31/20 03/31/20 Range/Units 13:40 13:40 13:40 D-Dimer, Quantitative 1.15 H (0.0-0.59) mg/LFEU Sodium 139 (135-145) mmol/L Potassium 3.3 L (3.5-5.3) mmol/L Chloride 102 (100-110) mmol/L Carbon Dioxide 24 (21-32) mmol/L BUN 29 H D (7-18) mg/dL Creatinine 1.4 H (0.55-1.02) mg/dL Est Cr Clr Drug Dosing TNP Estimated GFR (MDRD) 37 L (>60) BUN/Creatinine Ratio 20.7 H (9-20) Glucose 239 H D (80-116) mg/dL Calcium 9.4 (8.6-10.2) mg/dL Total Bilirubin 0.7 (0.1-1.3) mg/dL AST 29 H D (5-25) IU/L ALT 52 H D (12-36) U/L Alkaline Phosphatase 124 H (56-112) IU/L Troponin I 8.2 (4.0-60.3) pg/mL NT-Pro-B Natriuret Pep 83 (<=125) pg/mL Total Protein 8.2 H (6.0-8.0) g/dL Albumin 3.9 (3.2-4.6) g/dL Globulin 4.3 g/dL Albumin/Globulin Ratio 0.9 SARS-CoV-2 RNA (EVAN) (NEGATIVE) 03/31/20 Range/Units 13:45 D-Dimer, Quantitative (0.0-0.59) mg/LFEU Sodium (135-145) mmol/L Potassium (3.5-5.3) mmol/L Chloride (100-110) mmol/L Carbon Dioxide (21-32) mmol/L BUN (7-18) mg/dL Creatinine (0.55-1.02) mg/dL Est Cr Clr Drug Dosing Estimated GFR (MDRD) (>60) BUN/Creatinine Ratio (9-20) Glucose (80-116) mg/dL Calcium (8.6-10.2) mg/dL Total Bilirubin (0.1-1.3) mg/dL AST (5-25) IU/L ALT (12-36) U/L Alkaline Phosphatase (56-112) IU/L Troponin I (4.0-60.3) pg/mL NT-Pro-B Natriuret Pep (<=125) pg/mL Total Protein (6.0-8.0) g/dL Albumin (3.2-4.6) g/dL Globulin g/dL Albumin/Globulin Ratio SARS-CoV-2 RNA (EVAN) Positive H (NEGATIVE) Meds: Medications Discontinued Medications Generic Name Dose Route Start Last Admin Trade Name Freq PRN Reason Stop Dose Admin Lorazepam 1 mg 03/31/20 13:51 03/31/20 14:00 Ativan IM 03/31/20 13:52 1 mg ONETIME ONE Administration Departure - Departure Time of Disposition: 16:44 Disposition: Home, Self-Care 01 Condition: Fair Clinical Impression: COVID-19 virus detected - Discharge Information *PRESCRIPTION DRUG MONITORING PROGRAM REVIEWED*: Not Applicable *COPY OF PRESCRIPTION DRUG MONITORING REPORT IN PATIENT PETER: Not Applicable Instructions: COVID-19 Frequently Asked Questions, COVID-19, COVID-19: How to Protect Yourself and Others - CDC, Infection Prevention in the Home, Prevent the Spread of COVID-19 if You Are Sick - [facility] Referrals: Dylan Walsh MD [Primary Care Provider] - Forms: ED Department Discharge Sepsis Event Note (ED) - Focused Exam Vital Signs: Vital Signs Temp Pulse Resp BP Pulse Ox 03/31/20 12:45 36.6 C 99 18 112/73 100 - Problem List & Annotations (1) COVID-19 virus detected SNOMED Code(s): 6798462248719161 Code(s): U07.1 - COVID-19 Status: Acute Current Visit: Yes Annotation/Comment:: I suggested monitoring temps, hydration, and analgesic if needed. - Problem List Review Problem List Initiated/Reviewed/Updated: Yes - My Orders Last 24 Hours: My Active Orders 03/31/20 13:25 Chest 1V Frontal [CR] Stat URINALYSIS W/MICROSCOPIC [UA W/MICROSCOPIC] [URIN] Stat EKG 12 Lead [EK] Routine 03/31/20 13:27 EKG Documentation Completion [RC] ASDIRECTED - Assessment/Plan Last 24 Hours: My Active Orders 03/31/20 13:25 Chest 1V Frontal [CR] Stat URINALYSIS W/MICROSCOPIC [UA W/MICROSCOPIC] [URIN] Stat EKG 12 Lead [EK] Routine 03/31/20 13:27 EKG Documentation Completion [RC] ASDIRECTED Plan: Follow up with PCP if needed.
[2020-03-31] MEDS ORDERED: LORazepam 2 MG/ML SDV IM ONE (13:51)
== END 2020-03-31 17:20 | disposition home or self-care (01) ==
LOC: FB.ED 12:45
DX: U07.1 COVID-19 (principal); E78.00 Pure hypercholesterolemia, unspecified; I10 Essential (primary) hypertension; J44.9 Chronic obstructive pulmonary disease, unspecified; F41.9 Anxiety disorder, unspecified; F32.9 Major depressive disorder, single episode, unspecified; E11.9 Type 2 diabetes mellitus without complications; E03.9 Hypothyroidism, unspecified; E66.9 Obesity, unspecified; E11.51 Type 2 diabetes mellitus with diabetic peripheral angiopathy without gangrene; K21.9 Gastro-esophageal reflux disease without esophagitis; Z88.1 Allergy status to other antibiotic agents; Z88.8 Allergy status to other drugs, medicaments and biological substances; Z88.0 Allergy status to penicillin; Z88.2 Allergy status to sulfonamides; Z79.4 Long term (current) use of insulin; Z79.899 Other long term (current) drug therapy; Z79.02 Long term (current) use of antithrombotics/antiplatelets; Z86.718 Personal history of other venous thrombosis and embolism; Z79.01 Long term (current) use of anticoagulants
CPT/HCPCS: 36415; 71045; 80053; 83880; 84484; 85379; 93005; 96372; 99284; J2060; U0002; 99283

== ENCOUNTER 2022-11-06 21:09 | Emergency (ER) | payer MEDICARE, BC ==
[2022-11-06 22:27] LABS: HEMATOCRIT 37.1 % (34.2-48.2); HEMOGLOBIN 12.2 g/dL (11.4-15.5); MEAN CORPUSCULAR HEMOGLOBIN 27.9 pg (23.9-33.9); MEAN CORPUSCULAR HGB CONC 32.8 g/dL (31.9-34.8); MEAN PLATELET VOLUME 8.8 fL (7.1-12.4); PLATELET COUNT,PLT 168 x10(3)uL (151-488); RED BLOOD CELL COUNT 4.36 x10(6)uL (3.60-5.20); RED CELL DISTRIBUTION WIDTH 15.3 % (12.3-16.5); WHITE BLOOD CELL COUNT,WBC 13.2 x10-3/uL (3.0-10.3)
[2022-11-06 22:30] LABS: BLOOD UREA NITROGEN,BUN 19 mg/dL (7-18); BUN/CREATININE RATIO 17.3 (9-20); CARBON DIOXIDE,CO2 27 mmol/L (21-32); CHLORIDE,CL 100 mmol/L (100-110); CREATININE 1.1 mg/dL (0.55-1.02); EST CRCL DRUG DOSING (CG) 43.63 mL/min; ESTIMATED GFR 53 mL/min (>60); GLUCOSE RANDOM 264 mg/dL (80-116); POTASSIUM,K 4.2 mmol/L (3.5-5.3); SODIUM,NA 137 mmol/L (135-145)
[2022-11-06] MEDS: Iopamidol 755 Mg/ML 100 ML Bottle IV ONE (22:30)
[2022-11-06 22:36] LABS: LYMPHOCYTES PERCENT MAN 6 % (13-37); MONOCYTES PERCENT MAN 8 % (4-12); SEG NEUTROPHILS PERCENT MAN 86 % (46-82)
[2022-11-06 22:42] LABS: A/G RATIO 0.7; ALANINE AMINOTRANSFERASE,ALT 27 U/L (12-36); ALBUMIN 3.2 g/dL (3.2-4.6); ALKALINE PHOSPHATASE 100 IU/L (56-112); ASPARTATE AMNIOTRANSFERASE,AST 17 IU/L (5-25); BILIRUBIN TOTAL 0.7 mg/dL (0.1-1.3); PROTEIN TOTAL,TP 7.5 g/dL (6.0-8.0)
[2022-11-06] MEDS ORDERED: Vancomycin 1 GM SDV IV SCH (23:00)
[2022-11-07] MEDS: VANCOmycin 2 GM/400 ML 2 GM in Premix Bag 1 BAG IV ONE (00:39)
[2022-11-09] MEDS ORDERED: cefTRIAXone 1 GM Vial IM SCH (20:00)
== END 2022-11-07 02:55 | disposition home or self-care (01) ==
LOC: FB.ED 21:09
DX: L03.116 Cellulitis of left lower limb (principal); E78.00 Pure hypercholesterolemia, unspecified; I10 Essential (primary) hypertension; K21.9 Gastro-esophageal reflux disease without esophagitis; J44.9 Chronic obstructive pulmonary disease, unspecified; E66.9 Obesity, unspecified; Z68.41 Body mass index [BMI] 40.0-44.9, adult; Z88.1 Allergy status to other antibiotic agents; Z88.0 Allergy status to penicillin; Z88.2 Allergy status to sulfonamides; Z79.4 Long term (current) use of insulin; Z79.82 Long term (current) use of aspirin; Z79.899 Other long term (current) drug therapy
CPT/HCPCS: 36415; 73701-LT; 80053; 85025; 86140; 96365; 96366; 99284-25; J3370; Q9967

== ENCOUNTER 2022-11-11 20:57 | Emergency (ER) | payer MEDICARE, BC | END 2022-11-11 21:30 | disposition home or self-care (01) | LOC: FB.ED 20:57 | DX: L03.116 Cellulitis of left lower limb (principal); E78.00 Pure hypercholesterolemia, unspecified; I10 Essential (primary) hypertension; J44.9 Chronic obstructive pulmonary disease, unspecified; K21.9 Gastro-esophageal reflux disease without esophagitis; E11.9 Type 2 diabetes mellitus without complications; E03.9 Hypothyroidism, unspecified; E66.9 Obesity, unspecified; Z68.30 Body mass index [BMI] 30.0-30.9, adult; Z88.1 Allergy status to other antibiotic agents; Z88.0 Allergy status to penicillin; Z88.2 Allergy status to sulfonamides; Z88.8 Allergy status to other drugs, medicaments and biological substances; Z79.4 Long term (current) use of insulin; Z79.82 Long term (current) use of aspirin; Z79.899 Other long term (current) drug therapy | CPT/HCPCS: 99282 ==

== ENCOUNTER 2023-01-08 20:21 | Emergency (ER) | payer MEDICARE, BC ==
[2023-01-08 20:44] LABS: BASOPHILS ABSOLUTE AUTO 0.1 x10-3/uL (0.0-0.1); BASOPHILS PERCENT AUTO 0.8 % (0.2-1.5); EOSINOPHILS ABSOLUTE AUTO 0.3 x10-3/uL (0.0-0.8); EOSINOPHILS PERCENT AUTO 3.7 % (0.6-8.1); HEMATOCRIT 41.7 % (34.2-48.2); LYMPHOCYTES ABSOLUTE AUTO 1.3 x10-3/uL (1.0-4.4); LYMPHOCYTES PERCENT AUTO 14.4 % (18.4-52.1); MEAN CORPUSCULAR HGB CONC 33.7 g/dL (31.9-34.8); MEAN CORPUSCULAR VOLUME 86.1 fL (76.7-100.5); MEAN PLATELET VOLUME 8.3 fL (7.1-12.4); MONOCYTES ABSOLUTE AUTO 0.6 x10-3/uL (0.3-1.0); MONOCYTES PERCENT AUTO 6.7 % (4.4-15.7); NEUTROPHILS ABSOLUTE AUTO 6.6 x10-3/uL (1.5-6.3); NEUTROPHILS PERCENT AUTO 74.4 % (30.8-76.2); PLATELET COUNT,PLT 168 x10(3)uL (151-488); RED BLOOD CELL COUNT 4.84 x10(6)uL (3.60-5.20); RED CELL DISTRIBUTION WIDTH 15.1 % (12.3-16.5); WHITE BLOOD CELL COUNT,WBC 8.9 x10-3/uL (3.0-10.3)
[2023-01-08 20:49] LABS: BLOOD UREA NITROGEN,BUN 14 mg/dL (7-18); BUN/CREATININE RATIO 15.6 (9-20); CARBON DIOXIDE,CO2 29 mmol/L (21-32); CHLORIDE,CL 102 mmol/L (100-110); CREATININE 0.9 mg/dL (0.55-1.02); EST CRCL DRUG DOSING (CG) 53.33 mL/min; ESTIMATED GFR 67 mL/min (>60); GLUCOSE RANDOM 220 mg/dL (80-116); SODIUM,NA 138 mmol/L (135-145)
[2023-01-08 20:55] LABS: A/G RATIO 1.1; ALANINE AMINOTRANSFERASE,ALT 33 U/L (12-36); ALBUMIN 3.9 g/dL (3.2-4.6); ALKALINE PHOSPHATASE 82 IU/L (56-112); ASPARTATE AMNIOTRANSFERASE,AST 18 IU/L (5-25); BILIRUBIN TOTAL 0.7 mg/dL (0.1-1.3); PROTEIN TOTAL,TP 7.4 g/dL (6.0-8.0)
[2023-01-08 21:03] LABS: D-DIMER QUANTITATIVE 0.96 mg/LFEU (0.0-0.59)
[2023-01-08 21:04] LABS: PROTHROMBIN TIME 10.3 sec (9.0-11.1)
[2023-01-08 21:20] LABS: PTT,PARTIAL THROMBOPLSTIN TIME 27.3 SECONDS (24.4-33.2)
[2023-01-08] MEDS: Enoxaparin 100 MG/1 ML Syringe SUBCUT ONE (21:51)
== END 2023-01-08 22:01 | disposition home or self-care (01) ==
LOC: FB.ED 20:21
DX: M17.11 Unilateral primary osteoarthritis, right knee (principal); R79.1 Abnormal coagulation profile; I10 Essential (primary) hypertension; E78.00 Pure hypercholesterolemia, unspecified; J44.9 Chronic obstructive pulmonary disease, unspecified; K21.9 Gastro-esophageal reflux disease without esophagitis; E11.9 Type 2 diabetes mellitus without complications; E03.9 Hypothyroidism, unspecified; E66.9 Obesity, unspecified; Z68.34 Body mass index [BMI] 34.0-34.9, adult; Z79.01 Long term (current) use of anticoagulants; Z79.4 Long term (current) use of insulin; Z79.899 Other long term (current) drug therapy; Z88.8 Allergy status to other drugs, medicaments and biological substances; Z88.1 Allergy status to other antibiotic agents; Z88.2 Allergy status to sulfonamides; Z88.0 Allergy status to penicillin
CPT/HCPCS: 36415; 73502; 73562; 80053; 85025; 85379; 85610; 85730; 96372; 99283; J1650

== ENCOUNTER 2025-01-31 14:05 | Emergency (ER) | payer BC, MEDICARE ==
[2025-01-31 15:01] LABS: BASOPHILS ABSOLUTE AUTO 0.1 x10-3/uL (0.0-0.1); BASOPHILS PERCENT AUTO 1.0 % (0.2-1.5); EOSINOPHILS ABSOLUTE AUTO 0.4 x10-3/uL (0.0-0.8); EOSINOPHILS PERCENT AUTO 3.6 % (0.6-8.1); LYMPHOCYTES ABSOLUTE AUTO 1.3 x10-3/uL (1.0-4.4); LYMPHOCYTES PERCENT AUTO 13.3 % (18.4-52.1); MEAN PLATELET VOLUME 9.0 fL (7.1-12.4); MONOCYTES ABSOLUTE AUTO 0.7 x10-3/uL (0.3-1.0); MONOCYTES PERCENT AUTO 7.6 % (4.4-15.7); NEUTROPHILS ABSOLUTE AUTO 7.3 x10-3/uL (1.5-6.3); NEUTROPHILS PERCENT AUTO 74.5 % (30.8-76.2); PLATELET COUNT,PLT 195 x10(3)uL (151-488); RED BLOOD CELL COUNT 4.60 x10(6)uL (3.60-5.20); RED CELL DISTRIBUTION WIDTH 15.0 % (12.3-16.5); WHITE BLOOD CELL COUNT,WBC 9.8 x10-3/uL (3.0-10.3)
[2025-01-31 15:05] LABS: BLOOD UREA NITROGEN,BUN 24 mg/dL (7-18); CARBON DIOXIDE,CO2 30 mmol/L (21-32); CHLORIDE,CL 105 mmol/L (100-110); CREATININE 1.3 mg/dL (0.55-1.02); ESTIMATED GFR 42 mL/min (>60); GLUCOSE RANDOM 163 mg/dL (80-116); POTASSIUM,K 3.9 mmol/L (3.5-5.3); SODIUM,NA 142 mmol/L (135-145)
[2025-01-31 15:10] LABS: A/G RATIO 1.1; ALANINE AMINOTRANSFERASE,ALT 30 U/L (12-36); ASPARTATE AMNIOTRANSFERASE,AST 25 IU/L (5-25); BILIRUBIN TOTAL 1.5 mg/dL (0.1-1.3); PROTEIN TOTAL,TP 7.4 g/dL (6.0-8.0)
== END 2025-01-31 15:35 | disposition home or self-care (01) ==
LOC: FB.ED 14:05
DX: S06.2X0A Diffuse traumatic brain injury without loss of consciousness, initial encounter (principal); I10 Essential (primary) hypertension; E78.00 Pure hypercholesterolemia, unspecified; J44.9 Chronic obstructive pulmonary disease, unspecified; E11.9 Type 2 diabetes mellitus without complications; E03.9 Hypothyroidism, unspecified; Z90.49 Acquired absence of other specified parts of digestive tract; Z95.5 Presence of coronary angioplasty implant and graft; Z79.84 Long term (current) use of oral hypoglycemic drugs; Z79.4 Long term (current) use of insulin; Z79.82 Long term (current) use of aspirin; Z79.899 Other long term (current) drug therapy; Z88.1 Allergy status to other antibiotic agents; Z88.2 Allergy status to sulfonamides; Z88.8 Allergy status to other drugs, medicaments and biological substances; W18.30XA Fall on same level, unspecified, initial encounter
CPT/HCPCS: 36415; 70450; 80053; 85025; 86140; 99284